=== PATIENT | female | born 1990 | race American Indian/Alaskan Native ===

== ENCOUNTER 2017-05-23 02:26 | Emergency (ER) | payer SELFPAY ==
[2017-05-23] MEDS ORDERED: DUONEB *Not for PRN Use IH ONE ×3 (02:40→07:51)
[2017-05-23 03:16] LABS: Basophils % (Auto) 0.5 % (0.0-1.8); Eosinophils % (Auto) 3.9 % (0.0-4.3); Hematocrit 35.1 % (30.3-42.9); Hemoglobin 11.2 gm/dl (10.1-14.3); Mean Corpuscular HGB Conc 32 % (30-34); Mean Corpuscular Volume 80 fl (79-97); Platelet Count 316 K/mm3 (140-440); Red Blood Count 4.37 M/mm3 (3.65-5.03); Red Cell Distribution Width 15.7 % (13.2-15.2); White Blood Count 15.4 K/mm3 (4.5-11.0)
[2017-05-23 03:50] LABS: Mean Corpuscular Hemoglobin 26 pg (28-32)
[2017-05-23 04:01] LABS: Bilirubin,Urine NEG (Negative); Blood,Urine NEG (Negative); Ketones,Urine NEG (Negative); Leukocyte Esterase,Urine NEG (Negative); Nitrite,Urine NEG (Negative); Protein,Urine <15 mg/dL mg/dL (Negative); Urobilinogen,Urine < 2.0 mg/dL (<2.0)
[2017-05-23 04:05] LABS: Anion Gap 18 mmol/L; Blood Urea Nitrogen 6 mg/dL (7-17); Carbon Dioxide 26 mmol/L (22-30); Chloride 101.1 mmol/L (98-107); Glucose 123 mg/dL (65-100); Potassium 3.8 mmol/L (3.6-5.0); Sodium 141 mmol/L (137-145)
[2017-05-23] MEDS ORDERED: DECADRON IM ONE (07:51)
--- NOTE | 2017-05-23 08:01 | Emergency Department Report ---
ED Shortness of Breath HPI - General Chief Complaint: Upper Respiratory Infection Stated Complaint: COLD SYMPTOMS Time Seen by Provider: 05/23/17 07:43 Source: patient Mode of arrival: Ambulatory Limitations: No Limitations - History of Present Illness Initial Comments: 27-year-old female with worsening shortness of breath that started last night. Patient states that she's been very short of breath. Denies fevers chills nausea vomiting. Feels that her chest very tight. She's been using her inhaler. Complaint: shortness of breath, "asthma attack" Severity: moderate Consistency: constant Improves With: bronchodilators Known History Of: asthma Associated Symptoms: chest pain Treatments Prior to Arrival: bronchodilator - Related Data Home Medications Medication Instructions Recorded Confirmed Last Taken Iron 100 Plus Tablet 1 cap PO QAM 01/17/16 01/18/16 12/24/15 Vitamins Tablet 1 cap PO QAM 01/17/16 01/18/16 01/14/16 Previous Rx's Medication Instructions Recorded Last Taken Type Ciprofloxacin HCl [Cipro] 500 mg PO Q12H #20 tab 04/14/15 Unknown Rx HYDROcodone/APAP 10-325 [[place] 1 each PO Q6HR PRN #12 tablet 04/14/15 Unknown Rx 10/325] Promethazine [Phenergan] 25 mg PO Q6H PRN #10 tablet 04/14/15 Unknown Rx Ibuprofen [Motrin 800 MG tab] 800 mg PO Q8HR PRN #30 tablet 01/18/16 Unknown Rx oxyCODONE /ACETAMINOPHEN [Percocet 2 tab PO Q6HR PRN #30 tablet 01/18/16 Unknown Rx 5/325] Albuterol Sulfate [Proair 90 mcg IH Q4HR PRN #1 aer.pow.ba 05/23/17 Unknown Rx Respiclick] Ibuprofen [Motrin 600 MG tab] 600 mg PO Q8H PRN #30 tablet 05/23/17 Unknown Rx predniSONE [Deltasone] 40 mg PO QDAY #8 tab 05/23/17 Unknown Rx Allergies Allergy/AdvReac Type Severity Reaction Status Date / Time No Known Allergies Allergy Verified 04/14/15 10:24 ED Review of Systems ROS: Stated complaint: COLD SYMPTOMS Other details as noted in HPI Comment: All other systems reviewed and negative Constitutional: denies: chills, fever Eyes: denies: eye pain, eye discharge, vision change ENT: denies: ear pain, throat pain Respiratory: shortness of breath, wheezing. denies: cough Cardiovascular: denies: chest pain, palpitations Endocrine: no symptoms reported Gastrointestinal: denies: abdominal pain, nausea, diarrhea Genitourinary: denies: urgency, dysuria, discharge Musculoskeletal: denies: back pain, joint swelling, arthralgia Skin: denies: rash, lesions Neurological: denies: headache, weakness, paresthesias Psychiatric: denies: anxiety, depression Hematological/Lymphatic: denies: easy bleeding, easy bruising ED Past Medical Hx - Past Medical History Hx Hypertension: No Hx Congestive Heart Failure: No Hx Diabetes: No Hx Deep Vein Thrombosis: No Hx Renal Disease: No Hx Sickle Cell Disease: No Hx Seizures: No Hx Psychiatric Treatment: Yes (anxiety) Hx Asthma: Yes (inhaler prn) Hx COPD: No Hx HIV: No - Surgical History Past Surgical History?: Yes Additional Surgical History: X 4 - Social History Smoking Status: Current Some Day Smoker Substance Use Type: None - Medications Home Medications: Home Medications Medication Instructions Recorded Confirmed Last Taken Type Ciprofloxacin HCl [Cipro] 500 mg PO Q12H #20 tab 04/14/15 01/18/16 Unknown Rx HYDROcodone/APAP 10-325 [[place] 1 each PO Q6HR PRN #12 tablet 04/14/15 01/18/16 Unknown Rx 10/325] Promethazine [Phenergan] 25 mg PO Q6H PRN #10 tablet 04/14/15 01/18/16 Unknown Rx Iron 100 Plus Tablet 1 cap PO QAM 01/17/16 01/18/16 12/24/15 History Vitamins Tablet 1 cap PO QAM 01/17/16 01/18/16 01/14/16 History Ibuprofen [Motrin 800 MG tab] 800 mg PO Q8HR PRN #30 tablet 01/18/16 Unknown Rx oxyCODONE /ACETAMINOPHEN [Percocet 2 tab PO Q6HR PRN #30 tablet 01/18/16 Unknown Rx 5/325] Albuterol Sulfate [Proair 90 mcg IH Q4HR PRN #1 aer.pow.ba 05/23/17 Unknown Rx Respiclick] Ibuprofen [Motrin 600 MG tab] 600 mg PO Q8H PRN #30 tablet 05/23/17 Unknown Rx predniSONE [Deltasone] 40 mg PO QDAY #8 tab 05/23/17 Unknown Rx ED Physical Exam - General Limitations: No Limitations General appearance: alert, in no apparent distress - Head Head exam: Present: atraumatic, normocephalic - Eye Eye exam: Present: normal appearance - ENT ENT exam: Present: mucous membranes moist - Neck Neck exam: Present: normal inspection - Respiratory Respiratory exam: Present: respiratory distress, wheezes, rhonchi - Cardiovascular Cardiovascular Exam: Present: regular rate, normal rhythm. Absent: systolic murmur, diastolic murmur, rubs, gallop - GI/Abdominal GI/Abdominal exam: Present: soft, normal bowel sounds - Extremities Exam Extremities exam: Present: normal inspection - Back Exam Back exam: Present: normal inspection - Neurological Exam Neurological exam: Present: alert, oriented X3 - Psychiatric Psychiatric exam: Present: normal affect, normal mood - Skin Skin exam: Present: warm, dry, intact, normal color. Absent: rash ED Course Vital Signs 05/23/17 05/23/17 05/23/17 02:32 03:29 04:16 Temperature 99.8 F H Pulse Rate 110 H Pulse Rate [ 114 H 113 H Anterior Bilateral Throughout] Respiratory 18 18 Rate [Anterior Bilateral Throughout] Blood Pressure 156/95 O2 Sat by Pulse 98 Oximetry 05/23/17 05/23/17 08:19 08:36 Temperature Pulse Rate Pulse Rate [ 20 L 116 H Anterior Bilateral Throughout] Respiratory 111 H 20 Rate [Anterior Bilateral Throughout] Blood Pressure O2 Sat by Pulse Oximetry ED Medical Decision Making - Lab Data Result diagrams: 05/23/17 03:01 05/23/17 03:01 Laboratory Results - last 24 hr 05/23/17 05/23/17 05/23/17 03:01 03:01 03:34 WBC 15.4 H RBC 4.37 Hgb 11.2 Hct 35.1 MCV 80 MCH 26 L MCHC 32 RDW 15.7 H Plt Count 316 Lymph % (Auto) 19.5 [place] % (Auto) 6.3 Eos % (Auto) 3.9 Baso % (Auto) 0.5 Lymph # 3.0 [place] # 1.0 H Eos # 0.6 H Baso # 0.1 Seg Neutrophils % 69.8 Seg Neutrophils # 10.7 H Sodium 141 Potassium 3.8 Chloride 101.1 Carbon Dioxide 26 Anion Gap 18 BUN 6 L Creatinine 0.6 L Estimated GFR > 60 BUN/Creatinine Ratio 10.00 Glucose 123 H Calcium 9.0 Troponin T < 0.010 Urine Color Straw Urine Turbidity Clear Urine pH 5.0 Ur Specific [place] 1.009 Urine Protein <15 mg/dl Urine Glucose (UA) Neg Urine Ketones Neg Urine Blood Neg Urine Nitrite Neg Urine Bilirubin Neg Urine Urobilinogen < 2.0 Ur Leukocyte Esterase Neg Urine WBC (Auto) 1.0 Urine RBC (Auto) 0.0 Urine HCG, Qual Negative - EKG Data -: EKG Interpreted by Me - EKG Data 05/23/17 08:00 Sinus tach 116 normal axis normal intervals no ST-T wave changes - Medical Decision Making 27-year-old female here with asthma attack. She is wheezing significantly. She 's had 2 treatments prior to my evaluation and is still continuing to wheeze. Plan to treat her with an additional treatment and IM Decadron. We'll reassess in approximately one hour. She does have an elevated white count and low-grade temp. Chest x-ray is clear. My suspicion is this is viral. I don't believe the patient needs antibiotics at this time. After 3 nebulizer treatments patient is minimally improved. She still has mild wheezing but feels better. She has been hospitalized for her asthma 2 years ago. Never been intubated. Long discussion with patient regarding discharge. I do not plan to put her on antibiotics. I will discharge her with albuterol and steroids. Portions of this chart were dictated with dictation software. There may be dictation errors contained within this note. Critical care attestation.: If time is entered above; I have spent that time in minutes in the direct care of this critically ill patient, excluding procedure time. ED Disposition Clinical Impression: Acute asthma exacerbation Disposition: DC-01 TO HOME OR SELFCARE Is pt being admited?: No Condition: Stable Instructions: Asthma (ED) Prescriptions: Albuterol Sulfate [Proair Respiclick] 90 mcg IH Q4HR PRN #1 aer.pow.ba PRN Reason: Shortness Of Breath Ibuprofen [Motrin 600 MG tab] 600 mg PO Q8H PRN #30 tablet PRN Reason: Pain predniSONE [Deltasone] 40 mg PO QDAY #8 tab Referrals: PRIMARY CARE, [Primary Care Provider] - 3-5 Days
--- NOTE | 2017-05-23 09:30 | XRay Report ---
Chest 2 views: History: Normal cardiomediastinal silhouette. Trachea is midline. No consolidation, pneumothorax or pleural effusion. Impression: No acute cardiopulmonary findings.
[2017-05-23 09:51] VITALS: BP 154/79
== END 2017-05-23 09:51 | disposition home or self-care (01) ==
LOC: ED 02:26
DX: J45.901 Unspecified asthma with (acute) exacerbation (principal); F17.200 Nicotine dependence, unspecified, uncomplicated
CPT/HCPCS: 36415; 71020; 80048; 81001; 81025; 84484; 85025; 93005; 93010; 94640; 96372; 99284; J1100

== ENCOUNTER 2017-05-24 10:18 | Emergency (ER) | payer OTHER ==
[2017-05-24] MEDS ORDERED: DUONEB *Not for PRN Use IH ONE ×3 (10:58→16:02)
--- NOTE | 2017-05-24 10:58 | Emergency Department Report ---
Chief Complaint: Chest Pain Stated Complaint: SOB/CP/ABD/PAIN Time Seen by Provider: 05/24/17 10:55 - HPI History of Present Illness: Pt states she was seen in ED yesterday for asthma exacerbation. PT states now she is having abd pain and back pain. pt states the abd pain is just "little pains" - ROS Review of Systems: + chest congestion + wheezing + back pain + abd pain - Exam Vital Signs: Vital Signs 05/24/17 10:44 Temperature 98.6 F Pulse Rate 113 H Respiratory 20 Rate Blood Pressure 137/109 O2 Sat by Pulse 100 Oximetry Physical Exam: abd soft non tender exp wheeze farida MSE screening note: Focused history and physical exam performed. Due to findings the following was ordered: labs, neb ED Disposition for MSE Condition: Stable
[2017-05-24 11:34] LABS: Hematocrit 35.3 % (30.3-42.9); Hemoglobin 10.9 gm/dl (10.1-14.3); Mean Corpuscular HGB Conc 31 % (30-34); Mean Corpuscular Volume 81 fl (79-97); Platelet Count 355 K/mm3 (140-440); Red Blood Count 4.37 M/mm3 (3.65-5.03); Red Cell Distribution Width 16.1 % (13.2-15.2); White Blood Count 19.9 K/mm3 (4.5-11.0)
[2017-05-24 11:37] LABS: Mean Corpuscular Hemoglobin 25 pg (28-32)
[2017-05-24 12:02] LABS: Anion Gap 19 mmol/L; BUN/Creatinine Ratio 15.71; Blood Urea Nitrogen 11 mg/dL (7-17); Calcium 9.1 mg/dL (8.4-10.2); Carbon Dioxide 24 mmol/L (22-30); Chloride 101.8 mmol/L (98-107); Glucose 171 mg/dL (65-100); Potassium 3.8 mmol/L (3.6-5.0); Sodium 141 mmol/L (137-145)
[2017-05-24] MEDS ORDERED: ROBITUSSIN AC PO ONE (14:22)
--- NOTE | 2017-05-24 14:23 | Emergency Department Report ---
ED Shortness of Breath HPI - General Chief Complaint: Chest Pain Stated Complaint: SOB/CP/ABD/PAIN Time Seen by Provider: 05/24/17 10:55 Source: patient Mode of arrival: Ambulatory Limitations: No Limitations - History of Present Illness Initial Comments: 27-year-old female here with shortness of breath and continued wheezing. Patient was recently seen in the emergency department for an asthma exacerbation and shortness of breath difficulty breathing. She presents today with continued symptoms. States felt slightly better after steroid injection but now with worsening shortness of breath. She is speaking full sentences and appears fairly comfortable. She was able to walk to the x-ray without difficulty. Recently started steroid prescription MD Complaint: shortness of breath, "asthma attack" -: Gradual Known History Of: asthma Associated Symptoms: cough Treatments Prior to Arrival: oxygen, bronchodilator, other (steroids) - Related Data Home Medications Medication Instructions Recorded Confirmed Last Taken Iron 100 Plus Tablet 1 cap PO QAM 01/17/16 01/18/16 12/24/15 Vitamins Tablet 1 cap PO QAM 01/17/16 01/18/16 01/14/16 Previous Rx's Medication Instructions Recorded Last Taken Type Ciprofloxacin HCl [Cipro] 500 mg PO Q12H #20 tab 04/14/15 Unknown Rx HYDROcodone/APAP 10-325 [[place] 1 each PO Q6HR PRN #12 tablet 04/14/15 Unknown Rx 10/325] Promethazine [Phenergan] 25 mg PO Q6H PRN #10 tablet 04/14/15 Unknown Rx Ibuprofen [Motrin 800 MG tab] 800 mg PO Q8HR PRN #30 tablet 01/18/16 Unknown Rx oxyCODONE /ACETAMINOPHEN [Percocet 2 tab PO Q6HR PRN #30 tablet 01/18/16 Unknown Rx 5/325] Albuterol Sulfate [Proair 90 mcg IH Q4HR PRN #1 aer.pow.ba 05/23/17 Unknown Rx Respiclick] Ibuprofen [Motrin 600 MG tab] 600 mg PO Q8H PRN #30 tablet 05/23/17 Unknown Rx Azithromycin [Zithromax TAB] 250 mg PO ONCE #4 tablet 05/24/17 Unknown Rx guaiFENesin/CODEINE [Robitussin AC] 10 ml PO 4XD #240 oral.liqd 05/24/17 Unknown Rx predniSONE [Deltasone] 20 mg PO QDAY #6 tab 05/24/17 Unknown Rx Allergies Allergy/AdvReac Type Severity Reaction Status Date / Time No Known Allergies Allergy Verified 05/24/17 14:31 ED Review of Systems ROS: Stated complaint: SOB/CP/ABD/PAIN Other details as noted in HPI Comment: All other systems reviewed and negative Constitutional: denies: chills, fever Eyes: denies: eye pain, eye discharge, vision change ENT: denies: ear pain, throat pain Respiratory: shortness of breath, SOB with exertion. denies: cough, wheezing Cardiovascular: dyspnea on exertion. denies: chest pain, palpitations Endocrine: no symptoms reported Gastrointestinal: denies: abdominal pain, nausea, diarrhea Genitourinary: denies: urgency, dysuria, discharge Musculoskeletal: denies: back pain, joint swelling, arthralgia Skin: denies: rash, lesions Neurological: denies: headache, weakness, paresthesias Psychiatric: denies: anxiety, depression Hematological/Lymphatic: denies: easy bleeding, easy bruising ED Past Medical Hx - Past Medical History Previous Medical History?: Yes Hx Hypertension: No Hx Congestive Heart Failure: No Hx Diabetes: No Hx Deep Vein Thrombosis: No Hx Renal Disease: No Hx Sickle Cell Disease: No Hx Seizures: No Hx Psychiatric Treatment: Yes (anxiety) Hx Asthma: Yes (inhaler prn) Hx COPD: No Hx HIV: No - Surgical History Additional Surgical History: X 4 - Family History Family history: no significant - Social History Smoking Status: Former Smoker Substance Use Type: None - Medications Home Medications: Home Medications Medication Instructions Recorded Confirmed Last Taken Type Ciprofloxacin HCl [Cipro] 500 mg PO Q12H #20 tab 04/14/15 01/18/16 Unknown Rx HYDROcodone/APAP 10-325 [[place] 1 each PO Q6HR PRN #12 tablet 04/14/15 01/18/16 Unknown Rx 10/325] Promethazine [Phenergan] 25 mg PO Q6H PRN #10 tablet 04/14/15 01/18/16 Unknown Rx Iron 100 Plus Tablet 1 cap PO QAM 01/17/16 01/18/16 12/24/15 History Vitamins Tablet 1 cap PO QAM 01/17/16 01/18/16 01/14/16 History Ibuprofen [Motrin 800 MG tab] 800 mg PO Q8HR PRN #30 tablet 01/18/16 Unknown Rx oxyCODONE /ACETAMINOPHEN [Percocet 2 tab PO Q6HR PRN #30 tablet 01/18/16 Unknown Rx 5/325] Albuterol Sulfate [Proair 90 mcg IH Q4HR PRN #1 aer.pow.ba 05/23/17 Unknown Rx Respiclick] Ibuprofen [Motrin 600 MG tab] 600 mg PO Q8H PRN #30 tablet 05/23/17 Unknown Rx Azithromycin [Zithromax TAB] 250 mg PO ONCE #4 tablet 05/24/17 Unknown Rx guaiFENesin/CODEINE [Robitussin AC] 10 ml PO 4XD #240 oral.liqd 05/24/17 Unknown Rx predniSONE [Deltasone] 20 mg PO QDAY #6 tab 05/24/17 Unknown Rx ED Physical Exam - General Limitations: No Limitations General appearance: alert, in no apparent distress - Head Head exam: Present: atraumatic, normocephalic - Eye Eye exam: Present: normal appearance. Absent: scleral icterus, conjunctival injection - ENT ENT exam: Present: mucous membranes moist - Neck Neck exam: Present: normal inspection - Respiratory Respiratory exam: Present: wheezes, decreased breath sounds, prolonged expiratory. Absent: respiratory distress - Cardiovascular Cardiovascular Exam: Present: normal rhythm, tachycardia, normal heart sounds. Absent: systolic murmur, diastolic murmur, rubs, gallop - GI/Abdominal GI/Abdominal exam: Present: soft, normal bowel sounds - Extremities Exam Extremities exam: Present: normal inspection - Back Exam Back exam: Present: normal inspection - Neurological Exam Neurological exam: Present: alert, oriented X3 - Psychiatric Psychiatric exam: Present: normal affect, normal mood - Skin Skin exam: Present: warm, dry, intact, normal color. Absent: rash ED Course Vital Signs 05/24/17 05/24/17 05/24/17 10:44 12:16 12:33 Temperature 98.6 F Pulse Rate 113 H Pulse Rate [ 107 H 100 H Anterior Bilateral Throughout] Respiratory 20 Rate Respiratory 20 20 Rate [Anterior Bilateral Throughout] Blood Pressure 137/109 O2 Sat by Pulse 100 Oximetry 05/24/17 05/24/17 05/24/17 14:03 14:09 14:10 Temperature Pulse Rate 86 102 H Pulse Rate [ Anterior Bilateral Throughout] Respiratory 18 13 13 Rate Respiratory Rate [Anterior Bilateral Throughout] Blood Pressure 124/74 O2 Sat by Pulse 97 98 98 Oximetry 05/24/17 05/24/17 05/24/17 14:21 14:37 14:52 Temperature Pulse Rate 96 H Pulse Rate [ 101 H 107 H Anterior Bilateral Throughout] Respiratory 18 Rate Respiratory 20 20 Rate [Anterior Bilateral Throughout] Blood Pressure 124/74 O2 Sat by Pulse 98 Oximetry ED Medical Decision Making - Lab Data Result diagrams: 05/24/17 11:13 05/24/17 11:13 Laboratory Results - last 24 hr 05/24/17 05/24/17 11:13 11:13 WBC 19.9 H RBC 4.37 Hgb 10.9 Hct 35.3 MCV 81 MCH 25 L MCHC 31 RDW 16.1 H Plt Count 355 Lymph % (Auto) Sieve Grader Tender [place] % (Auto) Sieve Grader Tender Eos % (Auto) Sieve Grader Tender Baso % (Auto) Sieve Grader Tender Lymph # Sieve Grader Tender [place] # Sieve Grader Tender Eos # Sieve Grader Tender Baso # Sieve Grader Tender Seg Neutrophils % Sieve Grader Tender Seg Neutrophils # Sieve Grader Tender Sodium 141 Potassium 3.8 Chloride 101.8 Carbon Dioxide 24 Anion Gap 19 BUN 11 Creatinine 0.7 Estimated GFR > 60 BUN/Creatinine Ratio 15.71 Glucose 171 H Calcium 9.1 - EKG Data -: EKG Interpreted by Hi - EKG Data 05/24/17 14:46 Sinus tach 109 normal axis normal intervals and no ST-T wave changes - Radiology Data Radiology results: image reviewed - Medical Decision Making 27-year-old female here with continued shortness of breath and wheezing. Patient with continued wheezing. She feels that she has not improved since her treatments. Chest x-ray is unchanged. She has no obvious infiltrate. I do not suspect she has pneumonia. Her white count of 19.9 is likely related to recent steroid use. She is able to walk without difficulty. Do not believe she meets admission criteria. Critical care attestation.: If time is entered above; I have spent that time in minutes in the direct care of this critically ill patient, excluding procedure time. ED Disposition Clinical Impression: Acute asthma exacerbation Disposition: DC-01 TO HOME OR SELFCARE Is pt being admited?: No Condition: Stable Instructions: Asthma (ED) Additional Instructions: Please continue her steroid taper over the next 10 days. Finish your antibiotics. Prescriptions: Azithromycin [Zithromax TAB] 250 mg PO ONCE #4 tablet guaiFENesin/CODEINE [Robitussin AC] 10 ml PO 4XD #240 oral.liqd predniSONE [Deltasone] 20 mg PO QDAY #6 tab Referrals: PRIMARY CARE, [Primary Care Provider] - 3-5 Days
[2017-05-24 14:33] VITALS: BP 124/74
--- NOTE | 2017-05-24 15:26 | XRay Report ---
ROUTINE CHEST, TWO VIEWS: HISTORY: Wheezing, cough. The trachea, heart, mediastinal contour, lung weathers and bony thorax are unremarkable. IMPRESSION: Unremarkable chest x-ray.
[2017-05-24] MEDS ORDERED: ZITHROMAX PO ONE (16:02)
== END 2017-05-24 16:32 | disposition home or self-care (01) ==
LOC: ED 10:18
DX: J45.901 Unspecified asthma with (acute) exacerbation (principal); Z87.891 Personal history of nicotine dependence
CPT/HCPCS: 36415; 71020; 80048; 85025; 93005; 93010; 94640; 96372; 99284; J2930

== ENCOUNTER 2017-10-02 09:15 | Emergency (ER) | payer SELFPAY ==
[2017-10-02 09:20] VITALS: BP 138/86
--- NOTE | 2017-10-02 11:00 | Emergency Department Report ---
Eye Injury/Foreign Body - HPI Duration: 1 Day Eye Location: Right Severity: Mild Tetanus Status: Up to Date Eye Symptoms: Eye Pain: No, Blurred Vision: No, Eye Redness: Yes, Grinding/ Hammering Metal: No, Used Eye Protection: No, Contact Lens Use: No, Recalls Injury: No (no injury; no contacts; red r eye w matting this am), Photophobia: No ED Review of Systems ROS: Stated complaint: PINK EYE Other details as noted in HPI Comment: All other systems reviewed and negative Eyes: other (eye red) ED Past Medical Hx - Past Medical History Previous Medical History?: Yes Hx Hypertension: No Hx Congestive Heart Failure: No Hx Diabetes: No Hx Deep Vein Thrombosis: No Hx Renal Disease: No Hx Sickle Cell Disease: No Hx Seizures: No Hx Psychiatric Treatment: Yes (anxiety) Hx Asthma: Yes (inhaler prn) Hx COPD: No Hx HIV: No - Surgical History Past Surgical History?: Yes Additional Surgical History: X 5 - Social History Smoking Status: Current Every Day Smoker Substance Use Type: Alcohol - Medications Home Medications: Home Medications Medication Instructions Recorded Confirmed Last Taken Type Tobramycin/Dexamethasone [Tobradex 10 ml OP Q4H #1 drops.susp 10/02/17 Unknown Rx Eye Drops] Eye Injury Exam - Exam General: Vital signs noted. No distress. Alert and acting appropriately. to er w r red eye no recent urti no contacts no exposure known no trauma va 20/20 per rn r/l/ bilateral non ill non toxic no fever ambulatory perrl eom intact no hyphema no vision change no eye pain only red dc home w dc poc from fast track ED Course Vital Signs 10/02/17 09:17 Temperature 98.3 F Pulse Rate 99 H Respiratory 18 Rate Blood Pressure 138/86 O2 Sat by Pulse 95 Oximetry ED Medical Decision Making - Medical Decision Making see note - Differential Diagnosis conjunctivitis viral v bact Critical care attestation.: If time is entered above; I have spent that time in minutes in the direct care of this critically ill patient, excluding procedure time. ED Disposition Clinical Impression: Conjunctivitis Disposition: DC-01 TO HOME OR SELFCARE Is pt being admited?: No Does the pt Need Aspirin: No Condition: Stable Instructions: Conjunctivitis (ED) Additional Instructions: good hand washing Prescriptions: Tobramycin/Dexamethasone [Tobradex Eye Drops] 10 ml OP Q4H #1 drops.susp Referrals: PRIMARY CARE, [Primary Care Provider] - 3-5 Days DK BRYANT MD [Staff Physician] - 3-5 Days Forms: Work/School Release Form(ED) Time of Disposition: 10:57
== END 2017-10-02 11:22 | disposition home or self-care (01) ==
LOC: ED 09:15
DX: H10.9 Unspecified conjunctivitis (principal); F41.9 Anxiety disorder, unspecified; J45.909 Unspecified asthma, uncomplicated; F17.200 Nicotine dependence, unspecified, uncomplicated
CPT/HCPCS: 99282

== ENCOUNTER 2017-11-14 01:07 | Emergency (ER) | payer SELFPAY ==
[2017-11-14 01:43] VITALS: BP 158/85
== END 2017-11-14 03:00 | disposition left against medical advice (07) ==
LOC: ED 01:07
DX: Z53.21 Procedure and treatment not carried out due to patient leaving prior to being seen by health care provider (principal)

== ENCOUNTER 2017-12-14 23:30 | Emergency (ER) | payer SELFPAY ==
[2017-12-14 23:38] VITALS: BP 127/87
[2017-12-15 02:09] LABS: Bilirubin,Urine NEG (Negative); Blood,Urine NEG (Negative); Color,Urine Straw (Yellow); Mucus,Urine FEW /HPF; Protein,Urine <15 mg/dL mg/dL (Negative)
[2017-12-15 02:32] LABS: HCG Qualitative,Urine Negative (Negative)
--- NOTE | 2017-12-15 03:27 | XRay Report ---
FINAL REPORT PROCEDURE: XR CHEST ROUTINE 2V TECHNIQUE: PA and lateral chest radiographs were obtained. CPT 67513 HISTORY: cough COMPARISON: No prior studies are available for comparison. FINDINGS: Heart: Normal. Mediastinum/Vessels: Normal. Lungs/Pleural space: Normal. Bony thorax: No acute osseous abnormality. Other: IMPRESSION: Normal examination.
[2017-12-15] MEDS ORDERED: DECADRON IV ONE (03:28)
--- NOTE | 2017-12-15 03:29 | Emergency Department Report ---
Minor Respiratory - HPI Chief Complaint: Dyspnea/Respdistress Stated Complaint: SOB / IMMANUEL Time Seen by Provider: 12/15/17 03:27 Duration: 1 Day Severity: moderate Minor Respiratory: Yes Rhinorrhea, Yes Able to Tolerate Fluids, Yes Cough, Yes Sick Contacts, Yes Shortness of Breath, No Sore Throat, No Ear Pain, No Hemoptysis, No Chest Pain, No Fever Other History: This is a 27 y.o. female that presents with SOB, cough, and back pain for 2 days. She reports having a history of asthma. She haven't had an inhaler in years because no issues during that time. She had chills yesterday with no confirmation of fever. She is currently not taking anything for symptoms. Denies nausea, vomiting, fever, body aches, and chest pain. ED Review of Systems ROS: Stated complaint: SOB / IMMANUEL Other details as noted in HPI Constitutional: chills. denies: fever, malaise ENT: congestion. denies: ear pain, throat pain, dental pain, hearing loss, epistaxis Respiratory: cough, shortness of breath, SOB with exertion. denies: wheezing Cardiovascular: denies: chest pain, palpitations, edema, syncope Gastrointestinal: denies: abdominal pain, nausea, vomiting, diarrhea Musculoskeletal: back pain (mid back pain with cough). denies: joint swelling, arthralgia Neurological: denies: headache, weakness, paresthesias Psychiatric: denies: anxiety, depression, auditory hallucinations, visual hallucinations, homicidal thoughts, suicidal thoughts ED Past Medical Hx - Past Medical History Previous Medical History?: Yes Hx Hypertension: No Hx Congestive Heart Failure: No Hx Diabetes: No Hx Deep Vein Thrombosis: No Hx Renal Disease: No Hx Sickle Cell Disease: No Hx Seizures: No Hx Psychiatric Treatment: Yes (anxiety) Hx Asthma: Yes (inhaler prn) Hx COPD: No Hx HIV: No - Surgical History Past Surgical History?: Yes Additional Surgical History: X 5 - Social History Smoking Status: Current Every Day Smoker Substance Use Type: None - Medications Home Medications: Home Medications Medication Instructions Recorded Confirmed Last Taken Type Tobramycin/Dexamethasone [Tobradex 10 ml OP Q4H #1 drops.susp 10/02/17 Unknown Rx Eye Drops] ALBUTEROL Inhaler [Proair] 1 puff IH Q4-6H #1 inha 12/15/17 Unknown Rx Ibuprofen 800 mg PO Q6H PRN #20 tablet 12/15/17 Unknown Rx Prednisone [predniSONE 5 mg (6-Day 5 mg PO .TAPER #1 tab.ds.pk 12/15/17 Unknown Rx Pack, 21 Tabs)] Minor Respiratory Exam - Exam General: Vital signs noted. No distress. Alert and acting appropriately. HEENT: Yes Pharyngeal Erythema, Yes Moist Mucous Membranes, Yes Rhinorrhea, No Pharyngeal Exudates, No Conjuctival Injection, No Frontal Tenderness, No Maxillary Tenderness Ear: Neither TM Bulge, Neither TM Erythema, Neither EAC Pain, Neither EAC Discharge Neck: Yes Supple, No Adenopathy Lungs: Yes Wheezes, Yes Ronchi, No Good Air Exchange, No Stridor, No Cough, No Labored Respirations, No Retractions, No Use of Accessory Muscles, No Other Abnormal Lung Sounds Heart: Yes Regular, No Murmur Abdomen: Yes Normal Bowel Sounds, No Tenderness, No Peritoneal Signs Skin: No Rash, No Edema Neurologic: Alert and oriented, no deficits. Musculoskeletal: Unremarkable. ED Course Vital Signs 12/14/17 23:35 Temperature 98.2 F Pulse Rate 98 H Respiratory 17 Rate Blood Pressure 127/87 O2 Sat by Pulse 99 Oximetry ED Medical Decision Making - Radiology Data Radiology results: report reviewed CXR: IMPRESSION: Normal examination. - Medical Decision Making 29 y.o. female that presents with SOB and cough for 2 days. History of Asthma. She ran out of albuterol inhaler and haven't had one in years. Patient examined by me and in no distress. Vitals stable. Given decadron 10 mg IM in ER. Physical assessment rhonchi no wheezes. Asthma and URI, Start albuterol and prednisone taper. Discharged home stable. Encouraged to do supportive care for URI. Follow up with PCP in 2-3 days. Critical care attestation.: If time is entered above; I have spent that time in minutes in the direct care of this critically ill patient, excluding procedure time. ED Disposition Clinical Impression: Asthma Qualifiers: Asthma severity: mild Asthma persistence: intermittent Asthma complication type : with acute exacerbation Qualified Code(s): J45.21 - Mild intermittent asthma with (acute) exacerbation URI (upper respiratory infection) Qualifiers: URI type: acute nasopharyngitis (common cold) Qualified Code(s): J00 - Acute nasopharyngitis [common cold] Disposition: DC-01 TO HOME OR SELFCARE Is pt being admited?: No Does the pt Need Aspirin: No Condition: Stable Instructions: Asthma (ED), Reactive Airways Disease (ED) Additional Instructions: It is important to use inhaler or have active albuterol inhaler and avoiding asthma triggers. Complete full course of prednisone steroids as prescribed. Increase fluid intake. Wash hands frequently. Rest. Return to ER if fever, SOB, wheezing, and Nausea or Vomiting. Follow up with Primary Care Provider in 24-72 hours. Prescriptions: ALBUTEROL Inhaler [Proair] 1 puff IH Q4-6H #1 inha Ibuprofen 800 mg PO Q6H PRN #20 tablet PRN Reason: Pain Prednisone [predniSONE 5 mg (6-Day Pack, 21 Tabs)] 5 mg PO .TAPER #1 tab.ds.pk Referrals: [facility] [Outside] - 3-5 Days [facility] [Outside] - 3-5 Days [facility] [Outside] - 3-5 Days Forms: Work/School Release Form(ED) Time of Disposition: 04:47 Print Language: WALLISIAN
[2017-12-15] MEDS ORDERED: DECADRON IM ONE (03:43)
[2017-12-15] MEDS ORDERED: NORCO 5/325 ONE (03:47)
[2017-12-15] MEDS ORDERED: NORCO 5/325 PO ONE (03:48)
== END 2017-12-15 05:19 | disposition home or self-care (01) ==
LOC: ED 23:30
DX: J45.21 Mild intermittent asthma with (acute) exacerbation (principal); J00 Acute nasopharyngitis [common cold]; F41.9 Anxiety disorder, unspecified; F17.200 Nicotine dependence, unspecified, uncomplicated
CPT/HCPCS: 71046; 81001; 81025; 96372; 99284; J1100

== ENCOUNTER 2018-04-16 09:24 | Emergency (ER) | payer SELFPAY ==
[2018-04-16] MEDS ORDERED: DUONEB *Not for PRN Use IH ONE ×3 (10:02→10:32)
--- NOTE | 2018-04-16 10:09 | Emergency Department Report ---
ED Asthma HPI - General Chief Complaint: Adult Asthma Stated Complaint: TIGHT CHEST PAIN AND ASTHMATIC Time Seen by Provider: 04/16/18 09:54 Source: patient Mode of arrival: Ambulatory Limitations: No Limitations - History of Present Illness Initial Comments: This is a 27-year-old -[place] female who presents with shortness of breath and wheezing that started last night. Patient has a history of asthma and anxiety. Patient states she had a upper respiratory infection with fever which possibly triggered asthma. She is experiencing a productive cough with yellow sputum. She did not have money to follow up with primary care provider to get refills on inhaler. She is having difficulty breathing with shortness of breath. She decided to come in for evaluation. She is currently not taking anything [id number] for symptomatic relief. Denies chest pain, bodyaches , nausea or vomiting, and abdominal pain. MD Complaint: "asthma attack", shortness of breath, wheezing -: Last night Asthma History: childhood onset, history of prior ED visit Severity: moderate Context: recent URI, ran out of meds, medication non-compliance Associated Symptoms: productive cough, fever. denies: dry cough, chest pain, hemoptysis, leg edema, syncope - Related Data Current Asthma Therapy: none Previous Rx's Medication Instructions Recorded Last Taken Type Tobramycin/Dexamethasone [Tobradex 10 ml OP Q4H #1 drops.susp 10/02/17 Unknown Rx Eye Drops] ALBUTEROL Inhaler [Proair] 1 puff IH Q4-6H #1 inha 12/15/17 Unknown Rx Ibuprofen 800 mg PO Q6H PRN #20 tablet 12/15/17 Unknown Rx Prednisone [predniSONE 5 mg (6-Day 5 mg PO .TAPER #1 tab.ds.pk 12/15/17 Unknown Rx Pack, 21 Tabs)] ALBUTEROL Inhaler [ProAir HFA 1 puff IH Q4-6H PRN #1 inha 04/16/18 Unknown Rx Inhaler] Prednisone [predniSONE 10 mg 10 mg PO .TAPER #1 tab.ds.pk 04/16/18 Unknown Rx (6-Day Pack, 21 Tabs)] Allergies Allergy/AdvReac Type Severity Reaction Status Date / Time No Known Allergies Allergy Verified 05/24/17 14:31 ED Review of Systems ROS: Stated complaint: TIGHT CHEST PAIN AND ASTHMATIC Other details as noted in HPI Constitutional: fever. denies: chills ENT: congestion. denies: ear pain, throat pain, dental pain, hearing loss, epistaxis Respiratory: cough, shortness of breath, SOB with exertion, wheezing Cardiovascular: denies: chest pain, palpitations, syncope Gastrointestinal: denies: abdominal pain, nausea, vomiting, diarrhea Neurological: denies: headache, weakness, paresthesias Psychiatric: denies: anxiety, depression ED Past Medical Hx - Past Medical History Previous Medical History?: Yes Hx Hypertension: No Hx CVA: No Hx Congestive Heart Failure: No Hx Diabetes: No Hx Deep Vein Thrombosis: No Hx Renal Disease: No Hx Sickle Cell Disease: No Hx Seizures: No Hx Psychiatric Treatment: Yes (anxiety) Hx Asthma: Yes (inhaler prn) Hx COPD: No Hx HIV: No - Surgical History Past Surgical History?: Yes Additional Surgical History: X 5 - Social History Smoking Status: Current Every Day Smoker Substance Use Type: None - Medications Home Medications: Home Medications Medication Instructions Recorded Confirmed Last Taken Type Tobramycin/Dexamethasone [Tobradex 10 ml OP Q4H #1 drops.susp 10/02/17 Unknown Rx Eye Drops] ALBUTEROL Inhaler [Proair] 1 puff IH Q4-6H #1 inha 12/15/17 Unknown Rx Ibuprofen 800 mg PO Q6H PRN #20 tablet 12/15/17 Unknown Rx Prednisone [predniSONE 5 mg (6-Day 5 mg PO .TAPER #1 tab.ds.pk 12/15/17 Unknown Rx Pack, 21 Tabs)] ALBUTEROL Inhaler [ProAir HFA 1 puff IH Q4-6H PRN #1 inha 04/16/18 Unknown Rx Inhaler] Prednisone [predniSONE 10 mg 10 mg PO .TAPER #1 tab.ds.pk 04/16/18 Unknown Rx (6-Day Pack, 21 Tabs)] ED Physical Exam - General Limitations: No Limitations General appearance: alert, in no apparent distress - ENT ENT exam: Present: mucous membranes moist, other (turbinates mildly congested with clear discharge) - Respiratory Respiratory exam: Present: wheezes. Absent: rales, rhonchi, stridor, accessory muscle use, decreased breath sounds - Cardiovascular Cardiovascular Exam: Present: regular rate, normal rhythm. Absent: systolic murmur, diastolic murmur, rubs, gallop - GI/Abdominal GI/Abdominal exam: Present: soft, normal bowel sounds. Absent: organomegaly, mass - Neurological Exam Neurological exam: Present: alert, oriented X3 - Psychiatric Psychiatric exam: Present: normal affect, normal mood - Skin Skin exam: Present: warm, dry, intact, normal color. Absent: rash ED Course Vital Signs 04/16/18 04/16/18 04/16/18 09:30 10:04 10:24 Temperature 99.0 F Pulse Rate 94 H Pulse Rate [ 96 H 100 H Posterior Bilateral Throughout] Respiratory 20 Rate Respiratory 24 20 Rate [Posterior Bilateral Throughout] Blood Pressure 156/102 Blood Pressure [Right] O2 Sat by Pulse 98 Oximetry 04/16/18 04/16/18 04/16/18 10:33 11:01 11:41 Temperature Pulse Rate 94 H Pulse Rate [ 101 H 94 H Posterior Bilateral Throughout] Respiratory 18 Rate Respiratory 20 20 Rate [Posterior Bilateral Throughout] Blood Pressure Blood Pressure 116/71 [Right] O2 Sat by Pulse 100 Oximetry Vital Signs 04/16/18 04/16/18 04/16/18 09:30 10:04 10:24 Temperature 99.0 F Pulse Rate 94 H Pulse Rate [ 96 H 100 H Posterior Bilateral Throughout] Respiratory 20 Rate Respiratory 24 20 Rate [Posterior Bilateral Throughout] Blood Pressure 156/102 Blood Pressure [Right] O2 Sat by Pulse 98 Oximetry 04/16/18 04/16/18 04/16/18 10:33 11:01 11:41 Temperature Pulse Rate 94 H Pulse Rate [ 101 H 94 H Posterior Bilateral Throughout] Respiratory 18 Rate Respiratory 20 20 Rate [Posterior Bilateral Throughout] Blood Pressure Blood Pressure 116/71 [Right] O2 Sat by Pulse 100 Oximetry ED Medical Decision Making - Medical Decision Making 27 y.o. female that presents with SOB and wheezing since last night. History of Asthma and HTN. Noncompliant with medication. She ran out of meds months ago and unable to get prescription refill. Patient examined by me and in slight distress. Given duoneb treatment twice and prednisone 60 mg po once in ER. Wheezes resolved and sat 98% on room air. Asthma exacerbation, Start albuterol and prednisone taper. Discharged home stable. Encouraged to do supportive care for URI. Return to work tomorrow. Critical care attestation.: If time is entered above; I have spent that time in minutes in the direct care of this critically ill patient, excluding procedure time. ED Disposition Clinical Impression: Asthma exacerbation Qualifiers: Asthma severity: mild Asthma persistence: intermittent Qualified Code(s): J45.21 - Mild intermittent asthma with (acute) exacerbation Disposition: TO HOME OR SELFCARE Is pt being admited?: No Does the pt Need Aspirin: No Condition: Stable Instructions: Asthma (ED) Additional Instructions: It is important to use inhaler or have active albuterol inhaler and avoiding asthma triggers. Complete full course of prednisone steroids as prescribed. Follow up with Primary Care Provider in 24-72 hours. Prescriptions: ALBUTEROL Inhaler [ProAir HFA Inhaler] 1 puff IH Q4-6H PRN #1 inha PRN Reason: Shortness Of Breath Prednisone [predniSONE 10 mg (6-Day Pack, 21 Tabs)] 10 mg PO .TAPER #1 tab.ds.pk Referrals: [facility] [Outside] - 3-5 Days [facility] [Outside] - 3-5 Days [facility] [Outside] - 3-5 Days Time of Disposition: 11:40 Print Language: CZECH
[2018-04-16] MEDS ORDERED: DELTASONE PO ONE (10:11)
[2018-04-16 11:42] VITALS: BP 116/71
== END 2018-04-16 12:13 | disposition home or self-care (01) ==
LOC: ED 09:24
DX: J45.21 Mild intermittent asthma with (acute) exacerbation (principal); F41.9 Anxiety disorder, unspecified; F17.200 Nicotine dependence, unspecified, uncomplicated
CPT/HCPCS: 94640; 99283; J7512

== ENCOUNTER 2018-05-03 14:04 | Emergency (ER) | payer OTHER ==
[2018-05-03 14:20] VITALS: BP 153/72
--- NOTE | 2018-05-03 16:41 | Emergency Department Report ---
ED General Adult HPI - General Chief complaint: Upper Respiratory Infection Stated complaint: DRY COUGH SWOLLEN TONGUE Time Seen by Provider: 05/03/18 16:31 Source: patient Mode of arrival: Ambulatory Limitations: No Limitations - History of Present Illness Initial comments: Patient is 27-year-old female with no significant past medical history. Patient presented to the ER complaining of 2 weeks history of cough, productive for greenish sputum. Patient also complaining of mouth sore. Patient denied any chest pain, nausea or vomiting. - Related Data Previous Rx's Medication Instructions Recorded Last Taken Type Tobramycin/Dexamethasone [Tobradex 10 ml OP Q4H #1 drops.susp 10/02/17 Unknown Rx Eye Drops] ALBUTEROL Inhaler [Proair] 1 puff IH Q4-6H #1 inha 12/15/17 Unknown Rx Ibuprofen 800 mg PO Q6H PRN #20 tablet 12/15/17 Unknown Rx Prednisone [predniSONE 5 mg (6-Day 5 mg PO .TAPER #1 tab.ds.pk 12/15/17 Unknown Rx Pack, 21 Tabs)] ALBUTEROL Inhaler [ProAir HFA 1 puff IH Q4-6H PRN #1 inha 04/16/18 Unknown Rx Inhaler] Prednisone [predniSONE 10 mg 10 mg PO .TAPER #1 tab.ds.pk 04/16/18 Unknown Rx (6-Day Pack, 21 Tabs)] Allergies Allergy/AdvReac Type Severity Reaction Status Date / Time No Known Allergies Allergy Verified 05/24/17 14:31 ED Review of Systems ROS: Stated complaint: DRY COUGH SWOLLEN TONGUE Other details as noted in HPI Comment: All other systems reviewed and negative Constitutional: denies: chills, fever Respiratory: cough. denies: orthopnea, shortness of breath, SOB with exertion Cardiovascular: denies: chest pain, palpitations Gastrointestinal: denies: abdominal pain, nausea, vomiting ED Past Medical Hx - Past Medical History Hx Hypertension: No Hx CVA: No Hx Congestive Heart Failure: No Hx Diabetes: No Hx Deep Vein Thrombosis: No Hx Renal Disease: No Hx Sickle Cell Disease: No Hx Seizures: No Hx Psychiatric Treatment: Yes (anxiety) Hx Asthma: Yes (inhaler prn) Hx COPD: No Hx HIV: No - Surgical History Additional Surgical History: X 5 - Social History Smoking Status: Former Smoker Substance Use Type: None - Medications Home Medications: Home Medications Medication Instructions Recorded Confirmed Last Taken Type Tobramycin/Dexamethasone [Tobradex 10 ml OP Q4H #1 drops.susp 10/02/17 Unknown Rx Eye Drops] ALBUTEROL Inhaler [Proair] 1 puff IH Q4-6H #1 inha 12/15/17 Unknown Rx Ibuprofen 800 mg PO Q6H PRN #20 tablet 12/15/17 Unknown Rx Prednisone [predniSONE 5 mg (6-Day 5 mg PO .TAPER #1 tab.ds.pk 12/15/17 Unknown Rx Pack, 21 Tabs)] ALBUTEROL Inhaler [ProAir HFA 1 puff IH Q4-6H PRN #1 inha 04/16/18 Unknown Rx Inhaler] Prednisone [predniSONE 10 mg 10 mg PO .TAPER #1 tab.ds.pk 04/16/18 Unknown Rx (6-Day Pack, 21 Tabs)] ED Physical Exam - General Limitations: No Limitations General appearance: alert, in no apparent distress - Eye Eye exam: Present: normal appearance - ENT ENT exam: Present: normal orophraynx, other (cerumen impaction left ear) - Neck Neck exam: Present: normal inspection, full ROM. Absent: tenderness, meningismus, lymphadenopathy, thyromegaly - Respiratory Respiratory exam: Present: normal lung sounds bilaterally - Cardiovascular Cardiovascular Exam: Present: regular rate, normal rhythm, normal heart sounds - GI/Abdominal GI/Abdominal exam: Present: soft. Absent: distended, tenderness, guarding, rebound - Extremities Exam Extremities exam: Present: normal inspection, full ROM, normal capillary refill - Back Exam Back exam: Present: normal inspection, full ROM. Absent: tenderness, CVA tenderness (R), CVA tenderness (L), muscle spasm, paraspinal tenderness - Neurological Exam Neurological exam: Present: alert, oriented X3, CN II-XII intact, reflexes normal - Skin Skin exam: Present: warm, intact, normal color ED Course Vital Signs 05/03/18 14:15 Temperature 98.2 F Pulse Rate 97 H Blood Pressure 153/72 O2 Sat by Pulse 100 Oximetry Critical care attestation.: If time is entered above; I have spent that time in minutes in the direct care of this critically ill patient, excluding procedure time. ED Disposition Clinical Impression: Bronchitis, Impacted cerumen of left ear, Mouth sore Disposition: - TO HOME OR SELFCARE Is pt being admited?: No Condition: Stable Instructions: Chronic Bronchitis (ED), Cerumen Impaction (ED), Canker Sores (ED ) Referrals: PRIMARY CARE, [Primary Care Provider] - 3-5 Days
== END 2018-05-03 16:51 | disposition home or self-care (01) ==
LOC: ED 14:04
DX: J40 Bronchitis, not specified as acute or chronic (principal); K13.79 Other lesions of oral mucosa; H61.22 Impacted cerumen, left ear; F41.9 Anxiety disorder, unspecified; Z87.891 Personal history of nicotine dependence
CPT/HCPCS: 99282

== ENCOUNTER 2018-12-22 10:06 | Emergency (ER) | payer MEDICAID, SELFPAY ==
[2018-12-22 10:35] VITALS: BP 132/70
[2018-12-22] MEDS ORDERED: DECADRON IM ONE (11:18)
[2018-12-22] MEDS ORDERED: PROVENTIL IH ONE (11:18)
[2018-12-22] MEDS ORDERED: ATROVENT IH ONE (11:18)
--- NOTE | 2018-12-22 11:39 | Emergency Department Report ---
ED Asthma HPI - General Chief Complaint: Dyspnea/Respdistress Stated Complaint: ASTHMA ATTACK/SOB Time Seen by Provider: 12/22/18 10:51 Source: patient Mode of arrival: Ambulatory Limitations: No Limitations - History of Present Illness Initial Comments: This is a 28-year-old female nontoxic, well nourished in appearance, no acute signs of distress presents to the ED with c/o of acute on chronic asthma exacerbation. Patient stated she is out of her albuterol inhaler 1 month. Patient stated has some mild coughing. Patient denies any sick contact. Patient denies any recent travels, long car, recent hospital stays. Patient denies any calf pain or calf tenderness. Patient denies any chest pain, short of breath, fever, chills, nausea, vomiting, hemoptysis, numbness, tingling, headache or stiff neck. Past medical history includes asthma. MD Complaint: "asthma attack", shortness of breath, wheezing -: days(s) (2) Severity: mild Context: ran out of meds Associated Symptoms: dry cough. denies: productive cough, fever, chest pain, hemoptysis, leg edema, syncope - Related Data Current Asthma Therapy: none Previous Rx's Medication Instructions Recorded Last Taken Type Tobramycin/Dexamethasone [Tobradex 10 ml OP Q4H #1 drops.susp 10/02/17 Unknown Rx Eye Drops] ALBUTEROL Inhaler (OR & NICU) 1 puff IH Q4-6H #1 inha 12/15/17 Unknown Rx [Proair] Ibuprofen 800 mg PO Q6H PRN #20 tablet 12/15/17 Unknown Rx Prednisone [predniSONE 5 mg (6-Day 5 mg PO .TAPER #1 tab.ds.pk 12/15/17 Unknown Rx Pack, 21 Tabs)] ALBUTEROL Inhaler (OR & NICU) 1 puff IH Q4-6H PRN #1 inha 04/16/18 Unknown Rx [ProAir HFA Inhaler] Prednisone [predniSONE 10 mg 10 mg PO .TAPER #1 tab.ds.pk 04/16/18 Unknown Rx (6-Day Pack, 21 Tabs)] Amoxicillin [Amoxicillin TAB] 875 mg PO BID #14 tablet 05/03/18 Unknown Rx guaiFENesin/CODEINE [Robitussin AC] 10 ml PO TID PRN #100 ml 05/03/18 Unknown Rx Dicyclomine [Bentyl] 40 mg PO QID 3 Days #12 tablet 07/24/18 Unknown Rx Promethazine [Phenergan TAB] 25 mg PO Q6HR PRN #16 tab 07/24/18 Unknown Rx ALBUTEROL Inhaler(NF) [VENTOLIN 2 puff IH Q4-6H PRN #1 inha 12/22/18 Unknown Rx Inhaler(NF)] Prednisone [predniSONE 10 mg 10 mg PO .TAPER #1 tab.ds.pk 12/22/18 Unknown Rx (6-Day Pack, 21 Tabs)] Allergies Allergy/AdvReac Type Severity Reaction Status Date / Time No Known Allergies Allergy Verified 12/22/18 10:07 ED Review of Systems ROS: Stated complaint: ASTHMA ATTACK/SOB Other details as noted in HPI Constitutional: denies: chills, fever Eyes: denies: eye pain, eye discharge, vision change ENT: denies: ear pain, throat pain Respiratory: cough, shortness of breath, wheezing Cardiovascular: denies: chest pain, palpitations Endocrine: no symptoms reported Gastrointestinal: denies: abdominal pain, nausea, diarrhea Genitourinary: denies: urgency, dysuria, discharge Musculoskeletal: denies: back pain, joint swelling, arthralgia Skin: denies: rash, lesions Neurological: denies: headache, weakness, paresthesias Psychiatric: denies: anxiety, depression Hematological/Lymphatic: denies: easy bleeding, easy bruising ED Past Medical Hx - Past Medical History Hx Hypertension: No Hx CVA: No Hx Congestive Heart Failure: No Hx Diabetes: No Hx Deep Vein Thrombosis: No Hx Renal Disease: No Hx Sickle Cell Disease: No Hx Seizures: No Hx Psychiatric Treatment: Yes (anxiety) Hx Asthma: Yes (inhaler prn) Hx COPD: No Hx HIV: No - Surgical History Past Surgical History?: Yes Additional Surgical History: X 5 - Social History Smoking Status: Current Every Day Smoker Substance Use Type: None - Medications Home Medications: Home Medications Medication Instructions Recorded Confirmed Last Taken Type Tobramycin/Dexamethasone [Tobradex 10 ml OP Q4H #1 drops.susp 10/02/17 Unknown Rx Eye Drops] ALBUTEROL Inhaler (OR & NICU) 1 puff IH Q4-6H #1 inha 12/15/17 Unknown Rx [Proair] Ibuprofen 800 mg PO Q6H PRN #20 tablet 12/15/17 Unknown Rx Prednisone [predniSONE 5 mg (6-Day 5 mg PO .TAPER #1 tab.ds.pk 12/15/17 Unknown Rx Pack, 21 Tabs)] ALBUTEROL Inhaler (OR & NICU) 1 puff IH Q4-6H PRN #1 inha 04/16/18 Unknown Rx [ProAir HFA Inhaler] Prednisone [predniSONE 10 mg 10 mg PO .TAPER #1 tab.ds.pk 04/16/18 Unknown Rx (6-Day Pack, 21 Tabs)] Amoxicillin [Amoxicillin TAB] 875 mg PO BID #14 tablet 05/03/18 Unknown Rx guaiFENesin/CODEINE [Robitussin AC] 10 ml PO TID PRN #100 ml 05/03/18 Unknown Rx Dicyclomine [Bentyl] 40 mg PO QID 3 Days #12 tablet 07/24/18 Unknown Rx Promethazine [Phenergan TAB] 25 mg PO Q6HR PRN #16 tab 07/24/18 Unknown Rx ALBUTEROL Inhaler(NF) [VENTOLIN 2 puff IH Q4-6H PRN #1 inha 12/22/18 Unknown Rx Inhaler(NF)] Prednisone [predniSONE 10 mg 10 mg PO .TAPER #1 tab.ds.pk 12/22/18 Unknown Rx (6-Day Pack, 21 Tabs)] ED Physical Exam - General Limitations: No Limitations General appearance: alert, in no apparent distress - Head Head exam: Present: atraumatic, normocephalic - Eye Eye exam: Present: normal appearance - Neck Neck exam: Present: normal inspection, full ROM - Respiratory Respiratory exam: Present: normal lung sounds bilaterally, wheezes (bilateral upper and lower lobes). Absent: respiratory distress, rales, rhonchi, stridor, chest wall tenderness, accessory muscle use, decreased breath sounds, prolonged expiratory - Cardiovascular Cardiovascular Exam: Present: regular rate, normal rhythm, normal heart sounds. Absent: irregular rhythm, systolic murmur, diastolic murmur, rubs, gallop - Extremities Exam Extremities exam: Present: normal inspection, full ROM - Back Exam Back exam: Present: normal inspection, full ROM - Neurological Exam Neurological exam: Present: alert, oriented X3 - Psychiatric Psychiatric exam: Present: normal affect, normal mood - Skin Skin exam: Present: warm, dry, intact, normal color. Absent: rash ED Course Vital Signs 12/22/18 10:34 Temperature 98.0 F Pulse Rate 92 H Respiratory 20 Rate Blood Pressure 132/70 O2 Sat by Pulse 99 Oximetry - Reevaluation(s) Reevaluation #1: 12/22/18 11:47 Patient is speaking in full sentences with no signs of distress noted. ED Medical Decision Making - Medical Decision Making This is a 28-year-old female that presents with asthma exacerbation. Patient is stable and was examined by me. Chest x-ray has been obtained and reviewed by Odalis Randle within normal limits. Patient is notified of the x-ray report with no questions noted by the patient. Patient did receive breathing treatment and steroids in the ED which patient the symptoms has resolved and subsided. Posttreatment and there is no wheezing upon auscultation. Patient is discharged with albuterol and prednisone. Patient was referred to Follow-up with a primary care doctor in 3-5 days or if symptoms worsen and continue return to emergency room as soon as possible. At time of discharge, the patient does not seem toxic or ill in appearance. No acute signs of distress noted. Patient agrees to discharge treatment plan of care. No further questions noted by the patient. This chart is dictated with using [employer] Critical care attestation.: If time is entered above; I have spent that time in minutes in the direct care of this critically ill patient, excluding procedure time. ED Disposition Clinical Impression: Asthma exacerbation Qualifiers: Asthma severity: mild Asthma persistence: intermittent Qualified Code(s): J45.21 - Mild intermittent asthma with (acute) exacerbation Disposition: DC-01 TO HOME OR SELFCARE Is pt being admited?: No Does the pt Need Aspirin: No Condition: Stable Instructions: Asthma (ED) Additional Instructions: Follow-up with a primary care doctor in 3-5 days or if symptoms worsen and cont inue return to emergency room as soon as possible. Prescriptions: Prednisone [predniSONE 10 mg (6-Day Pack, 21 Tabs)] 10 mg PO .TAPER #1 tab.ds.pk ALBUTEROL Inhaler(NF) [VENTOLIN Inhaler(NF)] 2 puff IH Q4-6H PRN #1 inha PRN Reason: wheezing [facility] [Primary Care Provider] - 3-5 Days PRIMARY MD PETER [Referring] - 3-5 Days HITESH MEEHAN MD [Staff Physician] - 3-5 Days [facility] [Outside] - 3-5 Days [facility] [Outside] - 3-5 Days Forms: Work/School Release Form(ED)
--- NOTE | 2018-12-22 13:55 | XRay Report ---
ROUTINE CHEST, TWO VIEWS: HISTORY: Cough, wheezing. The trachea, heart, mediastinal contour, lung weathers and bony thorax are unremarkable. IMPRESSION: Unremarkable chest x-ray.
== END 2018-12-22 12:00 | disposition home or self-care (01) ==
LOC: ED 10:06
DX: J45.21 Mild intermittent asthma with (acute) exacerbation (principal); F17.200 Nicotine dependence, unspecified, uncomplicated
CPT/HCPCS: 71046; 96372; 99283; J1100

== ENCOUNTER 2019-05-08 19:12 | Emergency (ER) | payer SELFPAY ==
[2019-05-08] MEDS ORDERED: TYLENOL #3 PO ONE (23:05)
[2019-05-08] MEDS ORDERED: TYLENOL #3 ONE (23:06)
--- NOTE | 2019-05-08 23:20 | Emergency Department Report ---
ED ENT HPI - General Chief complaint: Dental/Oral Stated complaint: dental Time Seen by Provider: 05/08/19 21:41 Source: patient Mode of arrival: Ambulatory Limitations: No Limitations - History of Present Illness Initial comments: Patient is a 28-year-old female presents to the emergency room complains of right dental pain that began 5 hours prior to arrival. She has several known bad teeth. States she last saw dentist 6 months ago and states she needs several teeth extracted. She denies any fever or facial swelling. She denies any allergies to medications. States she has a past medical history of asthma, hyperlipidemia, prediabetes. last menstrual cycle April 12. States that she had a tubal ligation. - Related Data Previous Rx's Medication Instructions Recorded Last Taken Type Tobramycin/Dexamethasone [Tobradex 10 ml OP Q4H #1 drops.susp 10/02/17 Unknown Rx Eye Drops] ALBUTEROL Inhaler (OR & NICU) 1 puff IH Q4-6H #1 inha 12/15/17 Unknown Rx [Proair] Ibuprofen [Ibuprofen 800] 800 mg PO Q6H PRN #20 tablet 12/15/17 Unknown Rx Prednisone [predniSONE 5 mg (6-Day 5 mg PO .TAPER #1 tab.ds.pk 12/15/17 Unknown Rx Pack, 21 Tabs)] ALBUTEROL Inhaler (OR & NICU) 1 puff IH Q4-6H PRN #1 inha 04/16/18 Unknown Rx [ProAir HFA Inhaler] Prednisone [predniSONE 10 mg 10 mg PO .TAPER #1 tab.ds.pk 04/16/18 Unknown Rx (6-Day Pack, 21 Tabs)] Amoxicillin [Amoxicillin TAB] 875 mg PO BID #14 tablet 05/03/18 Unknown Rx guaiFENesin/CODEINE [Robitussin AC] 10 ml PO TID PRN #100 ml 05/03/18 Unknown Rx Dicyclomine [Bentyl] 40 mg PO QID 3 Days #12 tablet 07/24/18 Unknown Rx Promethazine [Phenergan TAB] 25 mg PO Q6HR PRN #16 tab 07/24/18 Unknown Rx ALBUTEROL Inhaler(NF) [VENTOLIN 2 puff IH Q4-6H PRN #1 inha 12/22/18 Unknown Rx Inhaler(NF)] Prednisone [predniSONE 10 mg 10 mg PO .TAPER #1 tab.ds.pk 12/22/18 Unknown Rx (6-Day Pack, 21 Tabs)] Acetaminophen/Codeine [Tylenol 1 tab PO Q6H PRN #7 tab 05/08/19 Unknown Rx /Codeine # 3 tab] Ibuprofen [Motrin 800 MG tab] 800 mg PO Q8HR PRN #20 tablet 05/08/19 Unknown Rx Penicillin Vk [Veetids TAB] 500 mg PO QID 7 Days #56 tablet 05/08/19 Unknown Rx Allergies Allergy/AdvReac Type Severity Reaction Status Date / Time No Known Allergies Allergy Verified 12/22/18 10:07 ED Dental HPI - General Chief complaint: Dental/Oral Stated complaint: JAW, HEAD,NECK, AND SHOULDER PAIN Time Seen by Provider: 05/08/19 21:41 Source: patient Mode of arrival: Ambulatory Limitations: No Limitations - Related Data Previous Rx's Medication Instructions Recorded Last Taken Type Tobramycin/Dexamethasone [Tobradex 10 ml OP Q4H #1 drops.susp 10/02/17 Unknown Rx Eye Drops] ALBUTEROL Inhaler (OR & NICU) 1 puff IH Q4-6H #1 inha 12/15/17 Unknown Rx [Proair] Ibuprofen [Ibuprofen 800] 800 mg PO Q6H PRN #20 tablet 12/15/17 Unknown Rx Prednisone [predniSONE 5 mg (6-Day 5 mg PO .TAPER #1 tab.ds.pk 12/15/17 Unknown Rx Pack, 21 Tabs)] ALBUTEROL Inhaler (OR & NICU) 1 puff IH Q4-6H PRN #1 inha 04/16/18 Unknown Rx [ProAir HFA Inhaler] Prednisone [predniSONE 10 mg 10 mg PO .TAPER #1 tab.ds.pk 04/16/18 Unknown Rx (6-Day Pack, 21 Tabs)] Amoxicillin [Amoxicillin TAB] 875 mg PO BID #14 tablet 05/03/18 Unknown Rx guaiFENesin/CODEINE [Robitussin AC] 10 ml PO TID PRN #100 ml 05/03/18 Unknown Rx Dicyclomine [Bentyl] 40 mg PO QID 3 Days #12 tablet 07/24/18 Unknown Rx Promethazine [Phenergan TAB] 25 mg PO Q6HR PRN #16 tab 07/24/18 Unknown Rx ALBUTEROL Inhaler(NF) [VENTOLIN 2 puff IH Q4-6H PRN #1 inha 12/22/18 Unknown Rx Inhaler(NF)] Prednisone [predniSONE 10 mg 10 mg PO .TAPER #1 tab.ds.pk 12/22/18 Unknown Rx (6-Day Pack, 21 Tabs)] Acetaminophen/Codeine [Tylenol 1 tab PO Q6H PRN #7 tab 05/08/19 Unknown Rx /Codeine # 3 tab] Ibuprofen [Motrin 800 MG tab] 800 mg PO Q8HR PRN #20 tablet 05/08/19 Unknown Rx Penicillin Vk [Veetids TAB] 500 mg PO QID 7 Days #56 tablet 05/08/19 Unknown Rx Allergies Allergy/AdvReac Type Severity Reaction Status Date / Time No Known Allergies Allergy Verified 12/22/18 10:07 ED Review of Systems ROS: Stated complaint: JAW, HEAD,NECK, AND SHOULDER PAIN Other details as noted in HPI Comment: All other systems reviewed and negative ED Past Medical Hx - Past Medical History Hx Hypertension: No Hx CVA: No Hx Congestive Heart Failure: No Hx Diabetes: No Hx Deep Vein Thrombosis: No Hx Renal Disease: No Hx Sickle Cell Disease: No Hx Seizures: No Hx Psychiatric Treatment: Yes (anxiety) Hx Asthma: Yes (inhaler prn) Hx COPD: No Hx HIV: No - Surgical History Additional Surgical History: X 5 - Social History Smoking Status: Current Every Day Smoker Substance Use Type: None - Medications Home Medications: Home Medications Medication Instructions Recorded Confirmed Last Taken Type Tobramycin/Dexamethasone [Tobradex 10 ml OP Q4H #1 drops.susp 10/02/17 Unknown Rx Eye Drops] ALBUTEROL Inhaler (OR & NICU) 1 puff IH Q4-6H #1 inha 12/15/17 Unknown Rx [Proair] Ibuprofen [Ibuprofen 800] 800 mg PO Q6H PRN #20 tablet 12/15/17 Unknown Rx Prednisone [predniSONE 5 mg (6-Day 5 mg PO .TAPER #1 tab.ds.pk 12/15/17 Unknown Rx Pack, 21 Tabs)] ALBUTEROL Inhaler (OR & NICU) 1 puff IH Q4-6H PRN #1 inha 04/16/18 Unknown Rx [ProAir HFA Inhaler] Prednisone [predniSONE 10 mg 10 mg PO .TAPER #1 tab.ds.pk 04/16/18 Unknown Rx (6-Day Pack, 21 Tabs)] Amoxicillin [Amoxicillin TAB] 875 mg PO BID #14 tablet 05/03/18 Unknown Rx guaiFENesin/CODEINE [Robitussin AC] 10 ml PO TID PRN #100 ml 05/03/18 Unknown Rx Dicyclomine [Bentyl] 40 mg PO QID 3 Days #12 tablet 07/24/18 Unknown Rx Promethazine [Phenergan TAB] 25 mg PO Q6HR PRN #16 tab 07/24/18 Unknown Rx ALBUTEROL Inhaler(NF) [VENTOLIN 2 puff IH Q4-6H PRN #1 inha 12/22/18 Unknown Rx Inhaler(NF)] Prednisone [predniSONE 10 mg 10 mg PO .TAPER #1 tab.ds.pk 12/22/18 Unknown Rx (6-Day Pack, 21 Tabs)] Acetaminophen/Codeine [Tylenol 1 tab PO Q6H PRN #7 tab 05/08/19 Unknown Rx /Codeine # 3 tab] Ibuprofen [Motrin 800 MG tab] 800 mg PO Q8HR PRN #20 tablet 05/08/19 Unknown Rx Penicillin Vk [Veetids TAB] 500 mg PO QID 7 Days #56 tablet 05/08/19 Unknown Rx ED Physical Exam - General Limitations: No Limitations General appearance: alert, in no apparent distress - Head Head exam: Present: atraumatic, normocephalic - Eye Eye exam: Present: normal appearance, PERRL, EOMI - ENT ENT exam: Present: mucous membranes moist, TM's normal bilaterally, normal external ear exam, other (poor dentition, several dental caries, two partially cracked teeth on the right lower side, no gum induration, no facial edema, uvula is midline, no uvular edema) - Respiratory Respiratory exam: Present: normal lung sounds bilaterally. Absent: respiratory distress, wheezes, rales, rhonchi, stridor, accessory muscle use, decreased breath sounds, prolonged expiratory - Cardiovascular Cardiovascular Exam: Present: regular rate, normal rhythm, normal heart sounds. Absent: systolic murmur, diastolic murmur, rubs, gallop - Neurological Exam Neurological exam: Present: alert, oriented X3 - Psychiatric Psychiatric exam: Present: normal affect, normal mood - Skin Skin exam: Present: warm, dry, intact ED Course Vital Signs 05/08/19 05/08/19 19:51 23:38 Temperature 98.7 F Pulse Rate 91 H 83 Respiratory 18 16 Rate Blood Pressure 139/83 O2 Sat by Pulse 99 99 Oximetry ED Medical Decision Making - Medical Decision Making Patient is a 28-year-old female presents to the emergency room complains of right dental pain that began 5 hours prior to arrival. She has several known bad teeth. States she last saw dentist 6 months ago and states she needs several teeth extracted. She denies any fever or facial swelling. She denies any allergies to medications. States she has a past medical history of asthma, hyperlipidemia, prediabetes. last menstrual cycle April 12. States that she had a tubal ligation. vitals are normal. on exam: poor dentition, several dental caries, two partially cracked teeth on the right lower side, no gum induration, no facial edema, uvula is midline, no uvular edema. pt given prescription for pain med, anti-inflammatory, and abx. advised to jefe take medication as prescribed. Do not drive or operate heavy machinery while taking pain medication. please follow-up with the dentist in the next 2-3 days. It is very important that you follow-up with a dentist for permanent solution. you were given a list of community dental clinics in the area. Return to the emergency room for any new or worsening symptoms. - Differential Diagnosis dental caries, dental abscess, dental infection Critical care attestation.: If time is entered above; I have spent that time in minutes in the direct care of this critically ill patient, excluding procedure time. ED Disposition Clinical Impression: Dental caries, Cracked tooth Disposition: - TO HOME OR SELFCARE Is pt being admited?: No Does the pt Need Aspirin: No Condition: Stable Instructions: Dental Caries (ED) Additional Instructions: Please take medication as prescribed. Do not drive or operate heavy machinery while taking pain medication. please follow-up with the dentist in the next 2-3 days. It is very important that you follow-up with a dentist for permanent solution. you were given a list of community dental clinics in the area. Return to the emergency room for any new or worsening symptoms. Prescriptions: Ibuprofen [Motrin 800 MG tab] 800 mg PO Q8HR PRN #20 tablet PRN Reason: Pain, Moderate (4-6) Acetaminophen/Codeine [Tylenol /Codeine # 3 tab] 1 tab PO Q6H PRN #7 tab PRN Reason: Pain , Severe (7-10) Penicillin Vk [Veetids TAB] 500 mg PO QID 7 Days #56 tablet Referrals: NATALIO DON MD [Primary Care Provider] - 2-3 Days [facility] [Outside] - 2-3 Days Time of Disposition: 23:19 Print Language: GREEK
[2019-05-08 23:33] VITALS: BP 139/83
== END 2019-05-08 23:38 | disposition home or self-care (01) ==
LOC: ED 19:12
DX: K02.9 Dental caries, unspecified (principal); F41.9 Anxiety disorder, unspecified; J45.909 Unspecified asthma, uncomplicated; F17.200 Nicotine dependence, unspecified, uncomplicated; Z79.899 Other long term (current) drug therapy
CPT/HCPCS: 99282

== ENCOUNTER 2020-01-08 15:12 | Emergency (ER) | payer SELFPAY ==
--- NOTE | 2020-01-08 20:01 | Emergency Department Report ---
HPI - General Chief Complaint: Adult Asthma Time Seen by Provider: 01/08/20 20:01 - HPI HPI: This is 29-year-old female here for asthma exacerbation. She said this is been going on for 1 day. Denies any fever or chills. Denies any nausea vomiting. She reports cough and wheezing along with nasal congestion and runny nose. She takes albuterol inhaler at home as needed. Denies any abdominal pain, nausea vomiting or diarrhea. Denies any chest pain or shortness of breath. Pain is 0/10. She took albuterol prior to coming to the emergency room ED Past Medical Hx - Past Medical History Previous Medical History?: Yes Hx Hypertension: No Hx CVA: No Hx Congestive Heart Failure: No Hx Diabetes: No Hx Deep Vein Thrombosis: No Hx Renal Disease: No Hx Sickle Cell Disease: No Hx Seizures: No Hx Psychiatric Treatment: Yes (anxiety) Hx Asthma: Yes (inhaler prn) Hx COPD: No Hx HIV: No - Surgical History Past Surgical History?: Yes Additional Surgical History: X 5 - Family History Family history: hypertension - Social History Smoking Status: Current Every Day Smoker Substance Use Type: None - Medications Home Medications: Home Medications Medication Instructions Recorded Confirmed Last Taken Type Tobramycin/Dexamethasone [Tobradex 10 ml OP Q4H #1 drops.susp 10/02/17 Unknown Rx Eye Drops] Albuterol INH(or & Nicu Only) 1 puff IH Q4-6H #1 inha 12/15/17 Unknown Rx [Proair] Ibuprofen [Ibuprofen 800] 800 mg PO Q6H PRN #20 tablet 12/15/17 Unknown Rx Prednisone [predniSONE 5 mg (6-Day 5 mg PO .TAPER #1 tab.ds.pk 12/15/17 Unknown Rx Pack, 21 Tabs)] Albuterol INH(or & Nicu Only) 1 puff IH Q4-6H PRN #1 inha 04/16/18 Unknown Rx [ProAir HFA Inhaler] Prednisone [predniSONE 10 mg 10 mg PO .TAPER #1 tab.ds.pk 04/16/18 Unknown Rx (6-Day Pack, 21 Tabs)] Amoxicillin [Amoxicillin TAB] 875 mg PO BID #14 tablet 05/03/18 Unknown Rx guaiFENesin/CODEINE [Robitussin AC] 10 ml PO TID PRN #100 ml 05/03/18 Unknown Rx Dicyclomine [Bentyl] 40 mg PO QID 3 Days #12 tablet 07/24/18 Unknown Rx Promethazine [Phenergan TAB] 25 mg PO Q6HR PRN #16 tab 07/24/18 Unknown Rx ALBUTEROL Inhaler(NF) [VENTOLIN 2 puff IH Q4-6H PRN #1 inha 12/22/18 Unknown Rx Inhaler(NF)] Prednisone [predniSONE 10 mg 10 mg PO .TAPER #1 tab.ds.pk 12/22/18 Unknown Rx (6-Day Pack, 21 Tabs)] Acetaminophen/Codeine [Tylenol 1 tab PO Q6H PRN #7 tab 05/08/19 Unknown Rx /Codeine # 3 tab] Ibuprofen [Motrin 800 MG tab] 800 mg PO Q8HR PRN #20 tablet 05/08/19 Unknown Rx Penicillin Vk [Veetids TAB] 500 mg PO QID 7 Days #56 tablet 05/08/19 Unknown Rx Albuterol INH(or & Nicu Only) 2 puff IH Q6H PRN #1 inhalation 01/08/20 Unknown Rx [ProAir HFA Inhaler] Cetirizine HCl [ZyrTEC] 10 mg PO QAM 14 Days #14 capsule 01/08/20 Unknown Rx Fluticasone [Flonase] 1 spray NS QDAY 14 Days #1 bottle 01/08/20 Unknown Rx Inhaler, Assist Devices [Space 1 each MC ONCE #1 spacer 01/08/20 Unknown Rx Chamber Plus] methylPREDNISolone [Medrol 4MG 4 mg PO QAM 6 Days #1 tab.ds.pk 01/08/20 Unknown Rx DOSEPAK (21 tabs)] ED Review of Systems ROS: Stated complaint: ASTHMA Other details as noted in HPI Constitutional: denies: chills, fever Eyes: denies: eye discharge ENT: congestion. denies: ear pain, throat pain Respiratory: cough, wheezing. denies: orthopnea, shortness of breath, SOB with exertion, SOB at rest, stridor Cardiovascular: denies: chest pain, palpitations, edema, syncope Gastrointestinal: denies: abdominal pain, nausea, vomiting, hematemesis, hematochezia Musculoskeletal: denies: back pain, arthralgia, myalgia Skin: denies: rash Neurological: denies: headache Physical Exam - Physical Exam Vital Signs: Vital Signs 01/08/20 01/08/20 15:18 15:19 Temperature 98.3 F Pulse Rate 103 H Respiratory 18 Rate Blood Pressure 147/88 O2 Sat by Pulse 97 Oximetry General: This is a 29-year-old female here for asthma exacerbation. Well-nourished well- developed and mild distress from coughing and wheezing. Physical Exam: Head: Normocephalic atraumatic Ears:BIateral middle ear congested without erythema and loss of bony landmarks. Benito EAC with normal exam. No mastoid bone tenderness. Mouth: Moist, no pharyngeal erythema or exudate . . UVULA midline and oral air ways patent. No peritonsillar abscess Neck: Nontender to palpate, supple, normal range of motion. No adenopathy. No c- spine tenderness. Nose: Bilateral nasal mucosa congested/erythema with clear drainage. Maxillary and frontal sinuses non-tender to palpate. Eyes: Bilateral Sclerae and conjunctiva without injection. Bilateral pupils equal and reactive to light. Bilateral lids are normal. Normal accommodation.BEOMI Lungs: Positive wheezing throughout lung weathers. No rhonchi's or rales. Normal work of breathing and no chest wall tenderness CV: S1, S2. No tachycardia 103 . negative murmur. Capillary refill is less than 3 seconds Abdomen: Nontender to palpation in all quadrants: No guarding or rebound tenderness. Positive bowel sounds in all quadrants Extremity: No clubbing, cyanosis or edema. +2 pulses in all extremities and no neurovascular compromise Skin: Clean dry and intact, no rashes or lesions Psych: Normal mood and behavior ED Course Vital Signs 01/08/20 01/08/20 15:18 15:19 Temperature 98.3 F Pulse Rate 103 H Respiratory 18 Rate Blood Pressure 147/88 O2 Sat by Pulse 97 Oximetry - Reevaluation(s) Reevaluation #1: 01/08/20 21:27 Patient treated with magnesium 2 g IV, albuterol nebulizer 10 mg and Atrovent 1 mg. She was given Solu-Medrol 125 mg IV. Upon reevaluation, her lung sounds are clear and she says she is feeling a lot better. ED Medical Decision Making - Medical Decision Making This is a 29-year-old female here for asthma exacerbation. She has cough and wheezing. Physical findings for wheezing throughout lung weathers with cough and nasal congestion. She was treated with IV magnesium, nebulizer treatments, Solu-Medrol IV. Upon reevaluation, lung sounds are clear and she says she is feeling a lot better. Patient is in no distress at present and discharged home with prescription for albuterol, Zyrtec Flonase and Medrol Dosepak. She is to follow-up with her primary care in 1 to 2 days and she voiced understanding. - Differential Diagnosis Asthma exacerbation, bronchitis, URI with cough and congestion Critical care attestation.: If time is entered above; I have spent that time in minutes in the direct care of this critically ill patient, excluding procedure time. ED Disposition Clinical Impression: Asthma exacerbation Qualifiers: Asthma severity: moderate Asthma persistence: unspecified Qualified Code(s): J45.901 - Unspecified asthma with (acute) exacerbation Allergic rhinitis Qualifiers: Allergic rhinitis trigger: unspecified Allergic rhinitis seasonality: seasonal Qualified Code(s): J30.2 - Other seasonal allergic rhinitis Disposition: DC- TO HOME OR SELFCARE Is pt being admited?: No Does the pt Need Aspirin: No Condition: Stable Instructions: Asthma (ED), Allergic Rhinitis (ED) Additional Instructions: Please follow-up with your primary care doctor in 1 to 2 days. Take medication as prescribed If your symptoms worsen, please return to the emergency room Prescriptions: Fluticasone [Flonase] 1 spray NS QDAY 14 Days #1 bottle methylPREDNISolone [Medrol 4MG DOSEPAK (21 tabs)] 4 mg PO QAM 6 Days #1 tab.ds.pk Albuterol INH(or & Nicu Only) [ProAir HFA Inhaler] 2 puff IH Q6H PRN #1 inhalation PRN Reason: Shortness Of Breath Inhaler, Assist Devices [Space Chamber Plus] 1 each MC ONCE #1 spacer Cetirizine HCl [ZyrTEC] 10 mg PO QAM 14 Days #14 capsule Referrals: PRIMARY CAREMD [Primary Care Provider] - 01/09/20 Forms: Work/School Release Form(ED)
--- NOTE | 2020-01-08 20:04 | Event Note ---
ED Screening Note Date of service: 01/08/20 Time: 19:59 ED Screening Note: This initial assessment/diagnostic orders/clinical plan/treatment(s) is/are subject to change based on patients health status, clinical progression and re- assessment by fellow clinical providers in the ED. Further treatment and workup at subsequent clinical providers discretion. Patient/guardian urged not to elope from the ED as their condition may be serious if not clinically assessed and managed. Initial orders include: Asthma x 1 day, Dyspnea and SOB. W/O JAS x 4 months.
[2020-01-08] MEDS ORDERED: methylPREDNISolone Sod Succinate 125 MG/2 ML INJ IV ONE (20:05)
[2020-01-08] MEDS ORDERED: MAGNESIUM SULFATE 2 GM/50 ML BAG IV ONE (20:06)
[2020-01-08] MEDS ORDERED: IPRATROPIUM 0.02% NEBU 2.5 ML IH ONE (20:06)
[2020-01-08] MEDS ORDERED: ALBUTEROL 2.5 MG/3 ML NEBU IH ONE (20:07)
[2020-01-08 21:46] VITALS: BP 150/84
== END 2020-01-08 23:00 | disposition home or self-care (01) ==
LOC: ED 15:12
DX: J45.901 Unspecified asthma with (acute) exacerbation (principal); J30.2 Other seasonal allergic rhinitis; F41.9 Anxiety disorder, unspecified; F17.200 Nicotine dependence, unspecified, uncomplicated; Z79.899 Other long term (current) drug therapy; Z98.890 Other specified postprocedural states
CPT/HCPCS: 94644; 96365; 96375; 99283; J2930; J3475

== ENCOUNTER 2021-01-07 06:13 | Emergency (ER) | payer SELFPAY ==
[2021-01-07 06:35] VITALS: BP 143/91
--- NOTE | 2021-01-07 07:56 | Emergency Department Report ---
ED Female HPI - General Chief complaint: Urogenital-Female Stated complaint: VAGINAL DISCOMFORT Time Seen by Provider: 01/07/21 07:51 Source: patient Mode of arrival: Ambulatory Limitations: No Limitations - History of Present Illness Initial comments: 30-year-old morbid obese -[place] female presents to the emergency room stating she is having vaginal discomfort with itching x3 days. Patient states that is burning in her vaginal area. Patient admits to dysuria. She reports she is currently on her menstrual cycle. She denies any abdominal pain no nausea no vomiting no diarrhea no fever no chills. MD Complaint: dysuria Onset/Timin -: days(s) Quality: burning Consistency: intermittent Improves with: none Worsens with: urination Are you Now?: Yes - Related Data Previous Rx's Medication Instructions Recorded Last Taken Type Tobramycin/Dexamethasone [Tobradex 10 ml OP Q4H #1 drops.susp 10/02/17 Unknown Rx Eye Drops] Albuterol Mdi (or & Nicu Only) 1 puff IH Q4-6H #1 inha 12/15/17 Unknown Rx [Proair] Ibuprofen [Ibuprofen 800] 800 mg PO Q6H PRN #20 tablet 12/15/17 Unknown Rx Prednisone [predniSONE 5 mg (6-Day 5 mg PO .TAPER #1 tab.ds.pk 12/15/17 Unknown Rx Pack, 21 Tabs)] Albuterol Mdi (or & Nicu Only) 1 puff IH Q4-6H PRN #1 inha 04/16/18 Unknown Rx [ProAir HFA Inhaler] Prednisone [predniSONE 10 mg 10 mg PO .TAPER #1 tab.ds.pk 04/16/18 Unknown Rx (6-Day Pack, 21 Tabs)] Amoxicillin [Amoxicillin TAB] 875 mg PO BID #14 tablet 05/03/18 Unknown Rx guaiFENesin/CODEINE [Robitussin AC] 10 ml PO TID PRN #100 ml 05/03/18 Unknown Rx Dicyclomine [Bentyl] 40 mg PO QID 3 Days #12 tablet 07/24/18 Unknown Rx Promethazine [Phenergan TAB] 25 mg PO Q6HR PRN #16 tab 07/24/18 Unknown Rx ALBUTEROL Inhaler(NF) [VENTOLIN 2 puff IH Q4-6H PRN #1 inha 12/22/18 Unknown Rx Inhaler(NF)] Prednisone [predniSONE 10 mg 10 mg PO .TAPER #1 tab.ds.pk 12/22/18 Unknown Rx (6-Day Pack, 21 Tabs)] Acetaminophen/Codeine [Tylenol 1 tab PO Q6H PRN #7 tab 05/08/19 Unknown Rx /Codeine # 3 tab] Ibuprofen [Motrin 800 MG tab] 800 mg PO Q8HR PRN #20 tablet 05/08/19 Unknown Rx Penicillin Vk [Veetids TAB] 500 mg PO QID 7 Days #56 tablet 05/08/19 Unknown Rx Albuterol Mdi (or & Nicu Only) 2 puff IH Q6H PRN #1 inhalation 01/08/20 Unknown Rx [ProAir HFA Inhaler] Cetirizine HCl [ZyrTEC] 10 mg PO QAM 14 Days #14 capsule 01/08/20 Unknown Rx Fluticasone [Flonase] 1 spray NS QDAY 14 Days #1 bottle 01/08/20 Unknown Rx Inhaler, Assist Devices [Space 1 each MC ONCE #1 spacer 01/08/20 Unknown Rx Chamber Plus] methylPREDNISolone [Medrol 4MG 4 mg PO QAM 6 Days #1 tab.ds.pk 01/08/20 Unknown Rx DOSEPAK (21 tabs)] Allergies Allergy/AdvReac Type Severity Reaction Status Date / Time No Known Allergies Allergy Verified 12/22/18 10:07 ED Review of Systems ROS: Stated complaint: VAGINAL DISCOMFORT Other details as noted in HPI Comment: All other systems reviewed and negative ED Past Medical Hx - Past Medical History Previous Medical History?: Yes Hx Hypertension: No Hx CVA: No Hx Congestive Heart Failure: No Hx Diabetes: No Hx Deep Vein Thrombosis: No Hx Renal Disease: No Hx Sickle Cell Disease: No Hx Seizures: No Hx Psychiatric Treatment: Yes (anxiety) Hx Asthma: Yes (inhaler prn) Hx COPD: No Hx HIV: No - Surgical History Past Surgical History?: Yes Additional Surgical History: X 5 - Social History Smoking Status: Current Every Day Smoker Substance Use Type: None - Medications Home Medications: Home Medications Medication Instructions Recorded Confirmed Last Taken Type Tobramycin/Dexamethasone [Tobradex 10 ml OP Q4H #1 drops.susp 10/02/17 Unknown Rx Eye Drops] Albuterol Mdi (or & Nicu Only) 1 puff IH Q4-6H #1 inha 12/15/17 Unknown Rx [Proair] Ibuprofen [Ibuprofen 800] 800 mg PO Q6H PRN #20 tablet 12/15/17 Unknown Rx Prednisone [predniSONE 5 mg (6-Day 5 mg PO .TAPER #1 tab.ds.pk 12/15/17 Unknown Rx Pack, 21 Tabs)] Albuterol Mdi (or & Nicu Only) 1 puff IH Q4-6H PRN #1 inha 04/16/18 Unknown Rx [ProAir HFA Inhaler] Prednisone [predniSONE 10 mg 10 mg PO .TAPER #1 tab.ds.pk 04/16/18 Unknown Rx (6-Day Pack, 21 Tabs)] Amoxicillin [Amoxicillin TAB] 875 mg PO BID #14 tablet 05/03/18 Unknown Rx guaiFENesin/CODEINE [Robitussin AC] 10 ml PO TID PRN #100 ml 05/03/18 Unknown Rx Dicyclomine [Bentyl] 40 mg PO QID 3 Days #12 tablet 07/24/18 Unknown Rx Promethazine [Phenergan TAB] 25 mg PO Q6HR PRN #16 tab 07/24/18 Unknown Rx ALBUTEROL Inhaler(NF) [VENTOLIN 2 puff IH Q4-6H PRN #1 inha 12/22/18 Unknown Rx Inhaler(NF)] Prednisone [predniSONE 10 mg 10 mg PO .TAPER #1 tab.ds.pk 12/22/18 Unknown Rx (6-Day Pack, 21 Tabs)] Acetaminophen/Codeine [Tylenol 1 tab PO Q6H PRN #7 tab 05/08/19 Unknown Rx /Codeine # 3 tab] Ibuprofen [Motrin 800 MG tab] 800 mg PO Q8HR PRN #20 tablet 05/08/19 Unknown Rx Penicillin Vk [Veetids TAB] 500 mg PO QID 7 Days #56 tablet 05/08/19 Unknown Rx Albuterol Mdi (or & Nicu Only) 2 puff IH Q6H PRN #1 inhalation 01/08/20 Unknown Rx [ProAir HFA Inhaler] Cetirizine HCl [ZyrTEC] 10 mg PO QAM 14 Days #14 capsule 01/08/20 Unknown Rx Fluticasone [Flonase] 1 spray NS QDAY 14 Days #1 bottle 01/08/20 Unknown Rx Inhaler, Assist Devices [Space 1 each MC ONCE #1 spacer 01/08/20 Unknown Rx Chamber Plus] methylPREDNISolone [Medrol 4MG 4 mg PO QAM 6 Days #1 tab.ds.pk 01/08/20 Unknown Rx DOSEPAK (21 tabs)] ED Physical Exam - General Limitations: No Limitations General appearance: alert, in no apparent distress - Head Head exam: Present: atraumatic, normocephalic - Eye Eye exam: Present: normal appearance - ENT ENT exam: Present: normal exam, normal external ear exam - Neck Neck exam: Present: normal inspection, full ROM - Respiratory Respiratory exam: Present: normal lung sounds bilaterally. Absent: respiratory distress, accessory muscle use - Cardiovascular Cardiovascular Exam: Present: regular rate, normal rhythm. Absent: systolic murmur, diastolic murmur, rubs, gallop - GI/Abdominal GI/Abdominal exam: Present: soft, normal bowel sounds. Absent: distended, tenderness, guarding, rebound - Extremities Exam Extremities exam: Present: normal inspection - Back Exam Back exam: Present: normal inspection - Neurological Exam Neurological exam: Present: alert, oriented X3 - Psychiatric Psychiatric exam: Present: normal affect, normal mood - Skin Skin exam: Present: warm, dry, intact, normal color. Absent: rash ED Course Vital Signs 01/07/21 01/07/21 06:34 09:25 Temperature 98.0 F Pulse Rate 104 H Respiratory 18 18 Rate Blood Pressure 143/91 O2 Sat by Pulse 98 Oximetry ED Medical Decision Making - Medical Decision Making 30-year-old morbid obese -[place] female presents to the emergency room stating she is having vaginal discomfort with itching x3 days. Patient states that is burning in her vaginal area. Patient admits to dysuria. She reports she is currently on her menstrual cycle. She denies any abdominal pain no nausea no vomiting no diarrhea no fever no chills. Urinalysis to be sent Critical care attestation.: If time is entered above; I have spent that time in minutes in the direct care of this critically ill patient, excluding procedure time. ED Disposition Clinical Impression: Vaginal irritation Disposition: Z-07 ELOPED Is pt being admited?: No Does the pt Need Aspirin: No Condition: Stable Instructions: Vaginitis, [id number] Additional Instructions: Urinalysis is negative for any infection. You can try [id number] Monistat. Follow-up with a [facility] or primary care provider. I have listed several referrals for your convenience. Be sure to increase your water intake. Avoid tight garments. Referrals: PRIMARY CARE, [Primary Care Provider] - 3-5 Days [facility] [Provider Group] - 3-5 Days [facility] [Provider Group] - 3-5 Days [facility] [Provider Group] - 3-5 Days [facility] [Provider Group] - 3-5 Days Forms: Work/School Release Form(ED)
[2021-01-07 08:14] LABS: Bilirubin,Urine NEG (Negative); Blood,Urine LG (Negative); Color,Urine Red (Yellow); Urobilinogen,Urine < 2.0 mg/dL (<2.0)
[2021-01-07 08:15] LABS: RBC,Urine > 182.0 /HPF (0.0-6.0)
== END 2021-01-07 09:30 | disposition left against medical advice (07) ==
LOC: ED 06:13
DX: N89.8 Other specified noninflammatory disorders of vagina (principal); F41.9 Anxiety disorder, unspecified; J45.909 Unspecified asthma, uncomplicated; F17.200 Nicotine dependence, unspecified, uncomplicated; Z79.899 Other long term (current) drug therapy; Z98.890 Other specified postprocedural states
CPT/HCPCS: 81001; 99282

== ENCOUNTER 2021-01-31 08:13 | Emergency (ER) | payer SELFPAY ==
[2021-01-31] MEDS ORDERED: SODIUM CHLORIDE 0.9% 1000 ML 1,000 ML IV ONE ×2 (08:31→09:45)
[2021-01-31 09:01] LABS: Color,Urine Yellow (Yellow)
[2021-01-31 09:02] LABS: Bilirubin,Urine NEG (Negative); Blood,Urine LG (Negative); Urobilinogen,Urine < 2.0 mg/dL (<2.0)
[2021-01-31 09:12] LABS: HCG Qualitative,Urine Negative (Negative); RBC,Urine > 182.0 /HPF (0.0-6.0)
--- NOTE | 2021-01-31 09:17 | Emergency Department Report ---
ED General Adult HPI - General Chief complaint: Skin/Abscess/Foreign Body Stated complaint: ABD PAIN Time Seen by Provider: 01/31/21 08:22 Source: patient Mode of arrival: Ambulatory Limitations: No Limitations - History of Present Illness Initial comments: 22-year-old obese patient with a past medical history of asthma presents to the ER today with complaints of urinary frequency, increased thirst, intermittent nausea, intermittent dizziness, intermittent generalized weakness, and mild intermittent periumbilical pain for the past 3 days. She also complains of an abscess to her pilonidal area which she noticed this past Wednesday. She states that it drained a lot of pus, on Wednesday but he still continues to be painful. She denies any vomiting, bowel changes, dysuria, or hematuria. She denies any fever or chills. She states she is currently on her menstrual cycle which started this past Wednesday. She denies any control. Denies any chest pain or shortness of breath or any other symptoms at this time. MD Complaint: Urinary frequency, increased thirst, nausea, dizzy, generalized weakness -: Gradual (3 days ago) - Related Data Previous Rx's Medication Instructions Recorded Last Taken Type Tobramycin/Dexamethasone [Tobradex 10 ml OP Q4H #1 drops.susp 10/02/17 Unknown Rx Eye Drops] Albuterol Mdi (or & Nicu Only) 1 puff IH Q4-6H #1 inha 12/15/17 Unknown Rx [Proair] Ibuprofen [Ibuprofen 800] 800 mg PO Q6H PRN #20 tablet 12/15/17 Unknown Rx Prednisone [predniSONE 5 mg (6-Day 5 mg PO .TAPER #1 tab.ds.pk 12/15/17 Unknown Rx Pack, 21 Tabs)] Albuterol Mdi (or & Nicu Only) 1 puff IH Q4-6H PRN #1 inha 04/16/18 Unknown Rx [ProAir HFA Inhaler] Prednisone [predniSONE 10 mg 10 mg PO .TAPER #1 tab.ds.pk 04/16/18 Unknown Rx (6-Day Pack, 21 Tabs)] Amoxicillin [Amoxicillin TAB] 875 mg PO BID #14 tablet 05/03/18 Unknown Rx guaiFENesin/CODEINE [Robitussin AC] 10 ml PO TID PRN #100 ml 05/03/18 Unknown Rx Dicyclomine [Bentyl] 40 mg PO QID 3 Days #12 tablet 07/24/18 Unknown Rx Promethazine [Phenergan TAB] 25 mg PO Q6HR PRN #16 tab 07/24/18 Unknown Rx ALBUTEROL Inhaler(NF) [VENTOLIN 2 puff IH Q4-6H PRN #1 inha 12/22/18 Unknown Rx Inhaler(NF)] Prednisone [predniSONE 10 mg 10 mg PO .TAPER #1 tab.ds.pk 12/22/18 Unknown Rx (6-Day Pack, 21 Tabs)] Acetaminophen/Codeine [Tylenol 1 tab PO Q6H PRN #7 tab 05/08/19 Unknown Rx /Codeine # 3 tab] Ibuprofen [Motrin 800 MG tab] 800 mg PO Q8HR PRN #20 tablet 05/08/19 Unknown Rx Penicillin Vk [Veetids TAB] 500 mg PO QID 7 Days #56 tablet 05/08/19 Unknown Rx Albuterol Mdi (or & Nicu Only) 2 puff IH Q6H PRN #1 inhalation 01/08/20 Unknown Rx [ProAir HFA Inhaler] Cetirizine HCl [ZyrTEC] 10 mg PO QAM 14 Days #14 capsule 01/08/20 Unknown Rx Fluticasone [Flonase] 1 spray NS QDAY 14 Days #1 bottle 01/08/20 Unknown Rx Inhaler, Assist Devices [Space 1 each MC ONCE #1 spacer 01/08/20 Unknown Rx Chamber Plus] methylPREDNISolone [Medrol 4MG 4 mg PO QAM 6 Days #1 tab.ds.pk 01/08/20 Unknown Rx DOSEPAK (21 tabs)] Sulfamethoxazole/Trimethoprim 1 each PO BID #14 tablet 01/31/21 Unknown Rx [Bactrim DS TAB] metFORMIN [Glucophage] 500 mg PO BID #60 tablet 01/31/21 Unknown Rx Allergies Allergy/AdvReac Type Severity Reaction Status Date / Time No Known Allergies Allergy Verified 12/22/18 10:07 ED Review of Systems ROS: Stated complaint: ABD PAIN Other details as noted in HPI Comment: All other systems reviewed and negative Constitutional: weakness. denies: chills, diaphoresis, fever, malaise Eyes: denies: eye pain, eye discharge, vision change ENT: denies: ear pain, throat pain, dental pain, hearing loss, epistaxis, halima estion Respiratory: denies: cough, shortness of breath, SOB with exertion, SOB at rest, wheezing Cardiovascular: denies: chest pain, palpitations Endocrine: increased thirst, increased urine Gastrointestinal: abdominal pain, nausea. denies: vomiting, diarrhea, constipation, hematemesis, melena, hematochezia Genitourinary: frequency. denies: urgency, dysuria, hematuria, discharge, abnormal menses, dyspareunia Musculoskeletal: denies: back pain, joint swelling, arthralgia Skin: denies: rash, lesions, change in color, change in hair/nails, pruritus, other Neurological: denies: headache, weakness, numbness, paresthesias, confusion, abnormal gait, vertigo Psychiatric: denies: anxiety, depression, auditory hallucinations, visual hallucinations, homicidal thoughts, suicidal thoughts Hematological/Lymphatic: denies: easy bleeding, easy bruising ED Past Medical Hx - Past Medical History Previous Medical History?: Yes Hx Hypertension: No Hx CVA: No Hx Congestive Heart Failure: No Hx Diabetes: No Hx Deep Vein Thrombosis: No Hx Renal Disease: No Hx Sickle Cell Disease: No Hx Seizures: No Hx Psychiatric Treatment: Yes (anxiety) Hx Asthma: Yes (inhaler prn) Hx COPD: No Hx HIV: No - Surgical History Past Surgical History?: Yes Additional Surgical History: X 5 - Social History Smoking Status: Current Every Day Smoker Substance Use Type: None - Medications Home Medications: Home Medications Medication Instructions Recorded Confirmed Last Taken Type Tobramycin/Dexamethasone [Tobradex 10 ml OP Q4H #1 drops.susp 10/02/17 Unknown Rx Eye Drops] Albuterol Mdi (or & Nicu Only) 1 puff IH Q4-6H #1 inha 12/15/17 Unknown Rx [Proair] Ibuprofen [Ibuprofen 800] 800 mg PO Q6H PRN #20 tablet 12/15/17 Unknown Rx Prednisone [predniSONE 5 mg (6-Day 5 mg PO .TAPER #1 tab.ds.pk 12/15/17 Unknown Rx Pack, 21 Tabs)] Albuterol Mdi (or & Nicu Only) 1 puff IH Q4-6H PRN #1 inha 04/16/18 Unknown Rx [ProAir HFA Inhaler] Prednisone [predniSONE 10 mg 10 mg PO .TAPER #1 tab.ds.pk 04/16/18 Unknown Rx (6-Day Pack, 21 Tabs)] Amoxicillin [Amoxicillin TAB] 875 mg PO BID #14 tablet 05/03/18 Unknown Rx guaiFENesin/CODEINE [Robitussin AC] 10 ml PO TID PRN #100 ml 05/03/18 Unknown Rx Dicyclomine [Bentyl] 40 mg PO QID 3 Days #12 tablet 07/24/18 Unknown Rx Promethazine [Phenergan TAB] 25 mg PO Q6HR PRN #16 tab 07/24/18 Unknown Rx ALBUTEROL Inhaler(NF) [VENTOLIN 2 puff IH Q4-6H PRN #1 inha 12/22/18 Unknown Rx Inhaler(NF)] Prednisone [predniSONE 10 mg 10 mg PO .TAPER #1 tab.ds.pk 12/22/18 Unknown Rx (6-Day Pack, 21 Tabs)] Acetaminophen/Codeine [Tylenol 1 tab PO Q6H PRN #7 tab 05/08/19 Unknown Rx /Codeine # 3 tab] Ibuprofen [Motrin 800 MG tab] 800 mg PO Q8HR PRN #20 tablet 05/08/19 Unknown Rx Penicillin Vk [Veetids TAB] 500 mg PO QID 7 Days #56 tablet 05/08/19 Unknown Rx Albuterol Mdi (or & Nicu Only) 2 puff IH Q6H PRN #1 inhalation 01/08/20 Unknown Rx [ProAir HFA Inhaler] Cetirizine HCl [ZyrTEC] 10 mg PO QAM 14 Days #14 capsule 01/08/20 Unknown Rx Fluticasone [Flonase] 1 spray NS QDAY 14 Days #1 bottle 01/08/20 Unknown Rx Inhaler, Assist Devices [Space 1 each MC ONCE #1 spacer 01/08/20 Unknown Rx Chamber Plus] methylPREDNISolone [Medrol 4MG 4 mg PO QAM 6 Days #1 tab.ds.pk 01/08/20 Unknown Rx DOSEPAK (21 tabs)] Sulfamethoxazole/Trimethoprim 1 each PO BID #14 tablet 01/31/21 Unknown Rx [Bactrim DS TAB] metFORMIN [Glucophage] 500 mg PO BID #60 tablet 01/31/21 Unknown Rx ED Physical Exam - General Limitations: No Limitations General appearance: alert, in no apparent distress, obese - Head Head exam: Present: atraumatic, normocephalic, normal inspection - Eye Eye exam: Present: normal appearance, PERRL, EOMI Pupils: Present: normal accommodation - Expanded ENT Exam Expanded Mouth exam: Present: other (dry mucous membranes). Absent: drooling, trismus, muffled voice, tongue normal, tongue elevation, laceration - Neck Neck exam: Present: normal inspection, full ROM - Respiratory Respiratory exam: Absent: normal lung sounds bilaterally, respiratory distress - Cardiovascular Cardiovascular Exam: Present: regular rate, normal rhythm, normal heart sounds - GI/Abdominal GI/Abdominal exam: Present: soft. Absent: distended, tenderness, guarding, rebound - Extremities Exam Extremities exam: Present: normal inspection - Neurological Exam Neurological exam: Present: alert, oriented X3, CN II-XII intact, normal gait - Psychiatric Psychiatric exam: Present: normal affect, normal mood - Skin Skin exam: Present: intact ED Course Vital Signs 01/31/21 01/31/21 01/31/21 08:17 09:36 09:46 Temperature 99.5 F Pulse Rate 109 H 107 H 100 H Respiratory 20 14 16 Rate Blood Pressure 151/95 133/84 Blood Pressure [Right] O2 Sat by Pulse 98 93 94 Oximetry 01/31/21 01/31/21 01/31/21 10:00 10:16 11:49 Temperature Pulse Rate 101 H 97 H 99 H Respiratory 16 19 16 Rate Blood Pressure 110/41 99/79 Blood Pressure 127/83 [Right] O2 Sat by Pulse 96 99 98 Oximetry ED Medical Decision Making - Lab Data Result diagrams: 01/31/21 08:48 01/31/21 08:48 - Medical Decision Making 22-year-old obese patient with a past medical history of asthma presents to the ER today with complaints of urinary frequency, increased thirst, intermittent nausea, intermittent dizziness, intermittent generalized weakness, and mild intermittent periumbilical pain for the past 3 days. She also complains of an a bscess to her pilonidal area which she noticed this past Wednesday. She states that it drained a lot of pus, on Wednesday but he still continues to be painful. She denies any vomiting, bowel changes, dysuria, or hematuria. She denies any fever or chills. She states she is currently on her menstrual cycle which started this past Wednesday. She denies any control. Denies any chest pain or shortness of breath or any other symptoms at this time. 1146: Patient's work up today show new onset DM but no DKA. Her sodium was 129 but that likely secondary to her elevated glucose. Her remaining labs unremarkable. Her repeat Finger stick blood glucose after 2 L IV fluids was 297. Pt reported feeling better after IV fluids. She has mild induration and ttp in pilonidal area but no fluctuance or cellulitis but will give oral bactrim to help with any residual infection. Patient overall not toxic, not ill-appearing and is not in any acute distress. She has a soft nontender abdomen. She is neurologically intact with a normal gait. At this time there is no indication for admission or emergent specialist consult. Discussed diagnosis, treatment plan and follow-up with patient. Discussed diet changes related to diabetes with patient. Recommend close follow-up with the primary care doctor listed on her instructions for continued follow-up of her diabetes. She expressed understanding of instructions and agree with plan. Patient was stable at time of discharge Critical care attestation.: If time is entered above; I have spent that time in minutes in the direct care o f this critically ill patient, excluding procedure time. ED Disposition Clinical Impression: New onset type 2 diabetes mellitus, Infected pilonidal cyst Disposition: DC- TO HOME OR SELFCARE Is pt being admited?: No Does the pt Need Aspirin: No Condition: Stable Instructions: Type 2 Diabetes Mellitus, Diagnosis, Adult, Pilonidal Cyst, Diabetes Mellitus Type 2 in Adults (ED) Additional Instructions: Take the metformin as prescribed. Take the antibiotics as prescribed. Recommend that you follow a good diabetic diet. Also recommend that you follow- up with the primary care doctor listed on your discharge instructions for continued monitoring of your blood sugar and referral to senior group manager. Rec ommend that you drink lots of fluids. Return to the ER if your symptoms changes or worsens in any way. Prescriptions: Sulfamethoxazole/Trimethoprim [Bactrim DS TAB] 1 each PO BID #14 tablet metFORMIN [Glucophage] 500 mg PO BID #60 tablet Referrals: ANDREE DUNAWAY MD [Staff Physician] - 3-5 Days Forms: Work/School Release Form(ED) Time of Disposition: 11:49
[2021-01-31 09:46] LABS: Basophils % (Auto) 0.3 % (0.0-1.8); Eosinophils # (Auto) 0.1 K/mm3 (0.0-0.4); Eosinophils % (Auto) 2.1 % (0.0-4.3); Hematocrit 37.7 % (30.3-42.9); Hemoglobin 12.3 gm/dl (10.1-14.3); Lymphocytes # (Auto) 1.5 K/mm3 (1.2-5.4); Lymphocytes % (Auto) 21.8 % (13.4-35.0); Mean Corpuscular HGB Conc 33 % (30-34); Mean Corpuscular Volume 81 fl (79-97); Monocytes # (Auto) 0.9 K/mm3 (0.0-0.8); Monocytes % (Auto) 12.4 % (0.0-7.3); Platelet Count 264 K/mm3 (140-440); Red Blood Count 4.68 M/mm3 (3.65-5.03); Red Cell Distribution Width 15.4 % (13.2-15.2)
[2021-01-31 10:09] LABS: Alanine Aminotransferase 27 units/L (7-56); Albumin 4.1 g/dL (3.9-5); Blood Urea Nitrogen 9 mg/dL (7-17); Calcium 8.9 mg/dL (8.4-10.2); Hemolysis Index 9
[2021-01-31 10:11] LABS: BUN/Creatinine Ratio 13
[2021-01-31 11:50] VITALS: BP 127/83
== END 2021-01-31 13:40 | disposition home or self-care (01) ==
LOC: ED 08:13
DX: E11.9 Type 2 diabetes mellitus without complications (principal); L05.91 Pilonidal cyst without abscess; F41.9 Anxiety disorder, unspecified; J45.909 Unspecified asthma, uncomplicated; F17.200 Nicotine dependence, unspecified, uncomplicated; Z79.899 Other long term (current) drug therapy
CPT/HCPCS: 36415; 80053; 81001; 81025; 82010; 82962; 83690; 83735; 85025; 96360; 96361; 99283; J7030

== ENCOUNTER 2021-12-17 09:45 | Emergency (ER) | payer SELFPAY ==
[2021-12-17 09:52] VITALS: BP 168/90
--- NOTE | 2021-12-19 09:09 | Electrocardiograph Report ---
[facility] Test Date: 2021-12-17 Test Time: 09:53:44 Pat Name: PILAR MACKENZIE Department: Room: Gender: F Abstractor: RACHEL : 1990 Requested By: ED DOC Order Number: [id number] Reading MD: Davi Dai Measurements Intervals [place] Rate: 91 P: 51 DC: 113 QRS: 59 QRSD: 94 T: 43 QT: 370 QTc: 455 Interpretive Statements Sinus rhythm No previous ECG available for comparison Electronically Signed On 12-19-2021 9:08:13 EST by Davi Dai
== END 2021-12-17 14:31 | disposition left against medical advice (07) ==
LOC: ED 09:45
DX: R07.9 Chest pain, unspecified (principal); Z53.21 Procedure and treatment not carried out due to patient leaving prior to being seen by health care provider
CPT/HCPCS: 93005